=== PATIENT | female | born 1945 | race Asian ===

== ENCOUNTER 2017-05-24 13:05 | Emergency (ER) | payer MEDICARE, OTHER ==
[~2017-05-24] VITALS: Ht 157.5 cm; Wt 75.0 kg
[~2017-05-24 13:05] MED LIST: ACLI400A2 IH; AMIT50TA3 PO; AMLO1TAB15 PO; ASPI325T PO; BUDE10.2 IH; CYAN1TAB44 PO; DICL2100G TP; ESCI10TA54 PO; GABA-529 PO; MECL-129 PO; METF10002 PO; METO50 PO; MIRA50TA PO; MONT10TA21 PO; NIAC-8 PO; OMEG-76 PO; OMEP20 PO; PERCT PO; SIMV40TA5 PO; VITA400T9 PO; VITAD1000 PO
[2017-05-24 13:27] LABS: GLUCOSE,POINT OF CARE 202 MG/DL (70-110)
[2017-05-24 14:18] LABS: BASOPHILS % (AUTO) 0.7 % (0.0-2.0); EOSINOPHILS % (AUTO) 7.4 % (1.0-6.0); HEMATOCRIT 38.7 % (36-46); HEMOGLOBIN 12.9 g/dL (12.0-16.0); LYMPHOCYTES # (AUTO) 2.7 K/uL (1.0-4.8); LYMPHOCYTES % (AUTO) 39.8 % (22.0-44.0); MEAN CORPUSCULAR HEMOGLOBIN 28.7 pg (26.0-34.0); MEAN CORPUSCULAR HGB CONC 33.2 G/dL (31.0-37.0); MEAN CORPUSCULAR VOLUME 86 fL (80-100); MONOCYTES # (AUTO) 0.4 K/uL (0.1-1.0); MONOCYTES % (AUTO) 5.8 % (2.0-9.0); NEUTROPHILS # (AUTO) 3.1 K/uL (1.8-7.7); NEUTROPHILS % (AUTO) 46.3 % (40.0-70.0); PLATELET COUNT (AUTO) 208 K/uL (150-450); RED BLOOD CELL COUNT(AUTO) 4.48 MIL/uL (4.00-5.20); RED CELL DISTRIBUTION WIDTH 14.9 % (11.5-14.5); WHITE BLOOD COUNT (AUTO) 6.7 K/uL (4.5-11.0)
[2017-05-24 14:27] LABS: ANION GAP 12 mmol/L (8-16); CALCIUM, TOTAL 8.9 mg/dL (8.8-10.5); CARBON DIOXIDE 25 mmol/L (22-29); CHLORIDE 100 mmol/L (98-107); CREATININE 1.16 mg/dL (0.60-1.30); GLOMERULAR FILTR. RATE CALC 46 mL/min (>60); POTASSIUM 3.8 mmol/L (3.5-5.1); SODIUM SERUM 137 mmol/L (136-145); UREA NITROGEN, BLOOD 16 mg/dL (7-18)
[2017-05-24 14:29] LABS: PROTHROMBIN TIME 10.5 SEC (9.4-11.6)
[2017-05-24 14:33] LABS: B-TYPE NATRIURETIC PEPTIDE 50 pg/mL (0-100)
[2017-05-24 14:51] LABS: GLUCOSE, URINE (UA) NEGATIVE (NEGATIVE); KETONES,URINE NEGATIVE (NEGATIVE); LEUKOCYTE ESTERASE ,URINE MODERATE (NEGATIVE); OCCULT BLOOD,URINE NEGATIVE (NEGATIVE); PROTEIN,URINE NEGATIVE (NEGATIVE)
[2017-05-24 14:53] LABS: ALANINE AMINOTRANSFERASE 28 U/L (12-78); ASPARTATE AMINOTRANSFERASE 23 U/L (15-37); BILIRUBIN,TOTAL 0.5 mg/dL (0.1-1.0); CREATINE KINASE, TOTAL 84 U/L (26-192); TOTAL PROTEIN, SERUM 7.6 g/dL (6.4-8.2)
[2017-05-24 14:57] LABS: ADD UA MICROSCOPIC YES; APPEARANCE,URINE HAZY (CLEAR); RBC,URINE None Seen /HPF (0-2); SQUAMOUS EPITHELIAL CELL,UR Few /LPF (None Seen)
[2017-05-24 15:05] LABS: CREATINE KINASE MB < 0.5 ng/mL (0-5)
[2017-05-24 15:38] LABS: THYROID STIMULATING HORMONE 2.93 uIU/mL (0.36-3.74)
[2017-05-24 15:48] LABS: ERYTHROCYTE SEDIMENTATION RATE 32 MM/HR (0-20)
[2017-05-24 15:57] LABS: GLUCOSE,POINT OF CARE 102 MG/DL (70-110)
[2017-05-24] MEDS ORDERED: SODIUM CHLORIDE 0.9% 500 ML IV ONE (16:15)
[2017-05-24 16:36] VITALS: BP 167/85
== END 2017-05-24 17:18 | disposition home or self-care (01) ==
LOC: EMS 13:08
DX: J40 Bronchitis, not specified as acute or chronic (principal); R53.1 Weakness; R42 Dizziness and giddiness; I11.9 Hypertensive heart disease without heart failure; E11.9 Type 2 diabetes mellitus without complications; J44.9 Chronic obstructive pulmonary disease, unspecified; F17.210 Nicotine dependence, cigarettes, uncomplicated; Z88.0 Allergy status to penicillin; Z88.6 Allergy status to analgesic agent
CPT/HCPCS: 36415; 70450; 71010; 80053; 81001; 82550; 82553; 82962; 83880; 84443; 84484; 85025; 85610; 85651; 85730; 87086; 93005; 99285; J7040

== ENCOUNTER 2017-06-14 12:00 | Emergency (ER) | payer MEDICARE, OTHER ==
[~2017-06-14] VITALS: Ht 157.5 cm; Wt 77.0 kg
[~2017-06-14 12:00] MED LIST changes: +ASPI-1213 PO; -ASPI325T PO
[2017-06-14 13:32] LABS: BASOPHILS % (AUTO) 1.1 % (0.0-2.0); EOSINOPHILS % (AUTO) 6.1 % (1.0-6.0); HEMATOCRIT 39.3 % (36-46); HEMOGLOBIN 13.2 g/dL (12.0-16.0); LYMPHOCYTES # (AUTO) 2.1 K/uL (1.0-4.8); LYMPHOCYTES % (AUTO) 41.2 % (22.0-44.0); MEAN CORPUSCULAR HEMOGLOBIN 29.2 pg (26.0-34.0); MEAN CORPUSCULAR HGB CONC 33.6 G/dL (31.0-37.0); MEAN CORPUSCULAR VOLUME 87 fL (80-100); MONOCYTES # (AUTO) 0.4 K/uL (0.1-1.0); MONOCYTES % (AUTO) 7.9 % (2.0-9.0); NEUTROPHILS # (AUTO) 2.2 K/uL (1.8-7.7); NEUTROPHILS % (AUTO) 43.7 % (40.0-70.0); PLATELET COUNT (AUTO) 197 K/uL (150-450); RED BLOOD CELL COUNT(AUTO) 4.53 MIL/uL (4.00-5.20); RED CELL DISTRIBUTION WIDTH 14.9 % (11.5-14.5); WHITE BLOOD COUNT (AUTO) 5.1 K/uL (4.5-11.0)
[2017-06-14 13:43] LABS: ANION GAP 9 mmol/L (8-16); CALCIUM, TOTAL 9.5 mg/dL (8.8-10.5); CARBON DIOXIDE 29 mmol/L (22-29); CHLORIDE 101 mmol/L (98-107); CREATININE 1.08 mg/dL (0.60-1.30); GLOMERULAR FILTR. RATE CALC 50 mL/min (>60); POTASSIUM 4.3 mmol/L (3.5-5.1); SODIUM SERUM 139 mmol/L (136-145); UREA NITROGEN, BLOOD 14 mg/dL (7-18)
[2017-06-14 13:54] LABS: B-TYPE NATRIURETIC PEPTIDE 108 pg/mL (0-100)
[2017-06-14 14:08] LABS: ALANINE AMINOTRANSFERASE 26 U/L (12-78); ALBUMIN 4.3 g/dL (3.4-5.0); ASPARTATE AMINOTRANSFERASE 38 U/L (15-37); BILIRUBIN,TOTAL 0.6 mg/dL (0.1-1.0); CREATINE KINASE, TOTAL 113 U/L (26-192); TOTAL PROTEIN, SERUM 8.2 g/dL (6.4-8.2)
[2017-06-14 14:10] LABS: CREATINE KINASE MB < 0.5 ng/mL (0-5)
[2017-06-14 15:04] VITALS: BP 141/86
[2017-06-14 16:48] LABS: GLUCOSE,POINT OF CARE 173 MG/DL (70-110)
== END 2017-06-14 15:09 | disposition home or self-care (01) ==
LOC: EMS 12:01
DX: R51 Headache (principal); G89.29 Other chronic pain; J44.9 Chronic obstructive pulmonary disease, unspecified; E11.9 Type 2 diabetes mellitus without complications; I11.9 Hypertensive heart disease without heart failure; G43.909 Migraine, unspecified, not intractable, without status migrainosus; F17.210 Nicotine dependence, cigarettes, uncomplicated; Z86.73 Personal history of transient ischemic attack (TIA), and cerebral infarction without residual deficits; Z79.82 Long term (current) use of aspirin; Z88.0 Allergy status to penicillin; Z88.6 Allergy status to analgesic agent
CPT/HCPCS: 70450; 82962; 99285

== ENCOUNTER 2019-07-30 11:20 | Inpatient (IN) | payer MEDICARE, OTHER ==
[~2019-07-30] VITALS: Ht 157.5 cm; Wt 68.2 kg
[~2019-07-30 11:20] MED LIST changes: -ACLI400A2 IH; +ACLI400A3 IH; +ALLO100T PO; -ASPI-1213 PO; +ASPI-1484 PO; +CHOL100018 PO; +METF-446 PO; -METF10002 PO; -PERCT PO; +SIMV-46 PO; -SIMV40TA5 PO; -VITAD1000 PO
[2019-07-30] MEDS ORDERED: ALLO100T PO (11:48)
[2019-07-30] MEDS ORDERED: METO25 PO (11:48)
[2019-07-30] MEDS ORDERED: GEMF600T5 PO (11:48)
[2019-07-30] MEDS ORDERED: [UNRECOGNIZED DRUG - OTHER] PO (11:48)
[2019-07-30] MEDS ORDERED: HYDR10TA31 PO (11:48)
[2019-07-30] MEDS ORDERED: SODIUM CHLORIDE 0.9% 100 ML ONE (11:51)
[2019-07-30] MEDS ORDERED: IOVERSOL 350 MG/ML 100 ML VIAL ONE (11:51)
[2019-07-30 12:05] LABS: BASOPHILS % (AUTO) 1.4 % (0.0-2.0); EOSINOPHILS % (AUTO) 7.8 % (1.0-6.0); HEMATOCRIT 37.9 % (36-46); LYMPHOCYTES % (AUTO) 35.4 % (22.0-44.0); MEAN CORPUSCULAR HEMOGLOBIN 26.9 pg (26.0-34.0); MEAN CORPUSCULAR HGB CONC 31.7 G/dL (31.0-37.0); MEAN CORPUSCULAR VOLUME 85 fL (80-100); MONOCYTES # (AUTO) 0.4 K/uL (0.1-1.0); NEUTROPHILS # (AUTO) 2.7 K/uL (1.8-7.7); NEUTROPHILS % (AUTO) 48.4 % (40.0-70.0); PLATELET COUNT (AUTO) 227 K/uL (150-450); RED BLOOD CELL COUNT(AUTO) 4.47 MIL/uL (4.00-5.20); RED CELL DISTRIBUTION WIDTH 15.7 % (11.5-14.5)
[2019-07-30 12:14] LABS: CALCIUM, TOTAL 8.8 mg/dL (8.8-10.5); CREATININE 1.07 mg/dL (0.60-1.30); POTASSIUM 3.8 mmol/L (3.5-5.1)
[2019-07-30 12:19] LABS: INR 0.9 (0.9-1.1); PROTHROMBIN TIME 9.4 SEC (9.4-11.6)
[2019-07-30 12:20] LABS: ALBUMIN 3.5 g/dL (3.4-5.0); BILIRUBIN,TOTAL 0.4 mg/dL (0.1-1.0); TOTAL PROTEIN, SERUM 7.6 g/dL (6.4-8.2)
[2019-07-30] MEDS ORDERED: ASPIRIN 300 MG RECTAL SUPPOSITORY PR ONE (13:00)
[2019-07-30] MEDS ORDERED: ONDANSETRON HCL 4 MG/2 ML VIAL IVP PRN ×2 (13:15→23:15)
[2019-07-30 13:48] LABS: GLUCOSE,POINT OF CARE 179 MG/DL (70-110)
[2019-07-30 17:33] LABS: GLUCOSE,POINT OF CARE 109 MG/DL (70-110)
[2019-07-30 18:10] VITALS: BP 148/82
[2019-07-30] MEDS ORDERED: INSULIN LISPRO 100 UNITS/ML SQ PRN (19:15)
[2019-07-30] MEDS ORDERED: DEXTROSE 50%-WATER 25 GM/50 ML SYRINGE IVP PRN (19:15)
[2019-07-30 20:43] VITALS: BP 160/77
[2019-07-30] MEDS ORDERED: ACETAMINOPHEN 325 MG TABLET PO PRN (23:15)
[2019-07-30] MEDS ORDERED: 0.9% SODIUM CHLORIDE 10 ML SYRINGE IVP PRN (23:15)
[2019-07-30] MEDS ORDERED: ZOLPIDEM TARTRATE 5 MG TABLET PO PRN (23:15)
[2019-07-30] MEDS: METOPROLOL TARTRATE 25 MG TABLET PO SCH (23:38)
[2019-07-30] MEDS: SIMVASTATIN 40 MG TABLET PO SCH (23:38)
[2019-07-31 00:07] VITALS: BP 131/71
[2019-07-31 00:29] LABS: CHOL/HDL RATIO 6.9 (3.9-5.7); THYROID STIMULATING HORMONE 4.16 uIU/mL (0.36-3.74)
[2019-07-31 04:34] VITALS: BP 155/82
[2019-07-31] MEDS: GEMFIBROZIL 600 MG TABLET PO SCH ×2 (06:30→16:59)
[2019-07-31 06:43] LABS: BASOPHILS % (AUTO) 1.5 % (0.0-2.0); EOSINOPHILS % (AUTO) 8.4 % (1.0-6.0); HEMATOCRIT 34.8 % (36-46); HEMOGLOBIN 11.2 g/dL (12.0-16.0); LYMPHOCYTES # (AUTO) 2.6 K/uL (1.0-4.8); LYMPHOCYTES % (AUTO) 43.9 % (22.0-44.0); MEAN CORPUSCULAR HEMOGLOBIN 27.2 pg (26.0-34.0); MEAN CORPUSCULAR HGB CONC 32.1 G/dL (31.0-37.0); MEAN CORPUSCULAR VOLUME 85 fL (80-100); MONOCYTES # (AUTO) 0.5 K/uL (0.1-1.0); MONOCYTES % (AUTO) 7.6 % (2.0-9.0); NEUTROPHILS # (AUTO) 2.3 K/uL (1.8-7.7); NEUTROPHILS % (AUTO) 38.6 % (40.0-70.0); PLATELET COUNT (AUTO) 216 K/uL (150-450); RED BLOOD CELL COUNT(AUTO) 4.11 MIL/uL (4.00-5.20); RED CELL DISTRIBUTION WIDTH 15.6 % (11.5-14.5)
[2019-07-31 07:02] LABS: CALCIUM, TOTAL 8.5 mg/dL (8.8-10.5); CREATININE 1.08 mg/dL (0.60-1.30); MAGNESIUM 1.1 mg/dL (1.80-2.40); POTASSIUM 3.4 mmol/L (3.5-5.1)
[2019-07-31 08:19] VITALS: BP 158/95
[2019-07-31 08:20] LABS: GLUCOMETER DEV NAME(LOC) 5N.1; GLUCOSE,POINT OF CARE 106 MG/DL (70-110)
[2019-07-31] MEDS ORDERED: ESCITALOPRAM OXALATE 10 MG TABLET PO SCH (09:00)
[2019-07-31] MEDS ORDERED: GABAPENTIN 100 MG CAPSULE PO SCH (09:00)
[2019-07-31] MEDS ORDERED: ASPIRIN 325 MG TABLET PO SCH (09:00)
[2019-07-31] MEDS ORDERED: PANTOPRAZOLE SODIUM 40 MG DR TABLET PO SCH (09:00)
[2019-07-31] MEDS ORDERED: DOCUSATE SODIUM 100 MG CAPSULE PO SCH (09:00)
[2019-07-31] MEDS: BUDESONIDE/FORMOTEROL FUMARATE 160-4.5 MCG/PUFF 6.9 GM INHALER IH SCH ×2 (09:23→21:21)
[2019-07-31] MEDS: HydrALAZINE HCL 50 MG TABLET PO SCH (09:23)
[2019-07-31] MEDS: METOPROLOL TARTRATE 25 MG TABLET PO SCH ×2 (09:23→21:20)
[2019-07-31] MEDS: CHOLECALCIFEROL (VIT D3) 1,000 UNITS TABLET PO SCH (09:24)
[2019-07-31] MEDS: MONTELUKAST SODIUM 10 MG TABLET PO SCH (09:24)
[2019-07-31] MEDS: ALLOPURINOL 100 MG TABLET PO SCH ×2 (09:24→21:20)
[2019-07-31] MEDS ORDERED: MAGNESIUM SULFATE 4 GM/WATER 100 ML IV PRN (11:15)
[2019-07-31] MEDS ORDERED: MAGNESIUM SULFATE 2 GM/WATER 50 ML IV PRN (11:15)
[2019-07-31] MEDS ORDERED: POTASSIUM CHLORIDE 20 MEQ ER TABLET PO PRN (11:15)
[2019-07-31] MEDS ORDERED: POTASSIUM CHL 10 MEQ/WATER 50 ML IV PRN (11:15)
[2019-07-31 11:41] LABS: ALBUMIN 3.3 g/dL (3.4-5.0)
[2019-07-31 12:22] LABS: GLUCOMETER DEV NAME(LOC) 5S.2A; GLUCOSE,POINT OF CARE 118 MG/DL (70-110)
[2019-07-31] MEDS ORDERED: SODIUM CHLORIDE 0.9% 250 ML IV ONE (12:33)
[2019-07-31] MEDS: MetFORMIN HCL 500 MG TABLET PO SCH ×2 (12:46→18:18)
[2019-07-31] MEDS: OMEPRAZOLE 20 MG CAPSULE PO SCH ×2 (12:47→21:20)
[2019-07-31] MEDS: ASPIRIN 81 MG CHEWABLE TABLET PO SCH (12:48)
[2019-07-31 15:30] VITALS: BP 152/94
[2019-07-31] MEDS: HEPARIN SODIUM,PORCINE 5,000 UNITS/ML VIAL SQ SCH (17:02)
[2019-07-31 20:10] VITALS: BP 158/81
[2019-07-31] MEDS: SIMVASTATIN 40 MG TABLET PO SCH (21:20)
[2019-07-31 21:37] LABS: GLUCOMETER DEV NAME(LOC) 5N.2; GLUCOSE,POINT OF CARE 158 MG/DL (70-110)
[2019-07-31 21:37] LABS: GLUCOMETER DEV NAME(LOC) 5N.2; GLUCOSE,POINT OF CARE 148 MG/DL (70-110)
[2019-07-31 21:37] LABS: GLUCOMETER DEV NAME(LOC) 5N.2; GLUCOSE,POINT OF CARE 184 MG/DL (70-110)
[2019-07-31 23:56] VITALS: BP 153/86
[2019-08-01 04:43] VITALS: BP 159/73
[2019-08-01] MEDS: GEMFIBROZIL 600 MG TABLET PO SCH ×2 (06:30→17:12)
[2019-08-01 06:56] LABS: GLUCOMETER DEV NAME(LOC) 5N.1; GLUCOSE,POINT OF CARE 160 MG/DL (70-110)
[2019-08-01 08:19] VITALS: BP 151/88
[2019-08-01] MEDS: HEPARIN SODIUM,PORCINE 5,000 UNITS/ML VIAL SQ SCH ×4 (08:30→23:11)
[2019-08-01] MEDS: MetFORMIN HCL 500 MG TABLET PO SCH ×2 (08:30→17:12)
[2019-08-01] MEDS: MONTELUKAST SODIUM 10 MG TABLET PO SCH (08:31)
[2019-08-01] MEDS: ASPIRIN 81 MG CHEWABLE TABLET PO SCH (08:31)
[2019-08-01] MEDS: BUDESONIDE/FORMOTEROL FUMARATE 160-4.5 MCG/PUFF 6.9 GM INHALER IH SCH ×2 (08:31→21:38)
[2019-08-01] MEDS: HydrALAZINE HCL 50 MG TABLET PO SCH (08:31)
[2019-08-01] MEDS: METOPROLOL TARTRATE 25 MG TABLET PO SCH ×2 (08:31→21:37)
[2019-08-01] MEDS: CLOPIDOGREL BISULFATE 75 MG TABLET PO SCH (08:31)
[2019-08-01] MEDS: ALLOPURINOL 100 MG TABLET PO SCH ×2 (08:32→21:37)
[2019-08-01] MEDS: CHOLECALCIFEROL (VIT D3) 1,000 UNITS TABLET PO SCH (08:32)
[2019-08-01] MEDS: MAGNESIUM OXIDE 400 MG TABLET PO PRN ×2 (08:32→18:51)
[2019-08-01] MEDS ORDERED: OMEPRAZOLE 20 MG CAPSULE PO SCH (09:00)
[2019-08-01] MEDS ORDERED: MECL-111 PO (11:13)
[2019-08-01] MEDS ORDERED: AMLO1TAB15 PO (11:13)
[2019-08-01] MEDS ORDERED: HYDR-2924 PO (11:14)
[2019-08-01 11:52] VITALS: BP 148/74
[2019-08-01 12:17] LABS: GLUCOMETER DEV NAME(LOC) 5N.2; GLUCOSE,POINT OF CARE 145 MG/DL (70-110)
[2019-08-01] MEDS: PANTOPRAZOLE SODIUM 40 MG DR TABLET PO SCH (13:48)
[2019-08-01 15:50] VITALS: BP 141/75
[2019-08-01] MEDS ORDERED: ACETAMINOPHEN 325 MG TABLET PO PRN (17:00)
[2019-08-01 17:36] LABS: GLUCOMETER DEV NAME(LOC) 5N.1; GLUCOSE,POINT OF CARE 141 MG/DL (70-110)
[2019-08-01 20:22] VITALS: BP 160/79
[2019-08-01] MEDS ORDERED: SIMVASTATIN 40 MG TABLET PO SCH (21:00)
[2019-08-02 00:03] VITALS: BP 146/79
[2019-08-02] MEDS: MAGNESIUM OXIDE 400 MG TABLET PO PRN (02:08)
[2019-08-02 04:37] VITALS: BP 157/77
[2019-08-02] MEDS: GEMFIBROZIL 600 MG TABLET PO SCH ×2 (06:00→17:43)
[2019-08-02 08:00] VITALS: BP 173/86
[2019-08-02] MEDS: HEPARIN SODIUM,PORCINE 5,000 UNITS/ML VIAL SQ SCH ×2 (09:48→16:03)
[2019-08-02] MEDS: MetFORMIN HCL 500 MG TABLET PO SCH ×2 (09:48→17:43)
[2019-08-02] MEDS: BUDESONIDE/FORMOTEROL FUMARATE 160-4.5 MCG/PUFF 6.9 GM INHALER IH SCH (09:49)
[2019-08-02] MEDS: HydrALAZINE HCL 50 MG TABLET PO SCH (09:49)
[2019-08-02] MEDS: METOPROLOL TARTRATE 25 MG TABLET PO SCH (09:49)
[2019-08-02] MEDS: ASPIRIN 81 MG CHEWABLE TABLET PO SCH (09:49)
[2019-08-02] MEDS: CHOLECALCIFEROL (VIT D3) 1,000 UNITS TABLET PO SCH (09:50)
[2019-08-02] MEDS: PANTOPRAZOLE SODIUM 40 MG DR TABLET PO SCH (09:50)
[2019-08-02] MEDS: CLOPIDOGREL BISULFATE 75 MG TABLET PO SCH (09:50)
[2019-08-02] MEDS: MONTELUKAST SODIUM 10 MG TABLET PO SCH (09:50)
[2019-08-02] MEDS: ALLOPURINOL 100 MG TABLET PO SCH (09:51)
[2019-08-02 11:45] VITALS: BP 146/93
[2019-08-02 17:38] LABS: GLUCOMETER DEV NAME(LOC) 5N.2; GLUCOSE,POINT OF CARE 146 MG/DL (70-110)
[2019-08-03 02:49] LABS: GLUCOMETER DEV NAME(LOC) 5N.1; GLUCOSE,POINT OF CARE 159 MG/DL (70-110)
[2019-08-03 02:49] LABS: GLUCOMETER DEV NAME(LOC) 5N.1; GLUCOSE,POINT OF CARE 115 MG/DL (70-110)
[2019-08-03 06:49] LABS: GLUCOMETER DEV NAME(LOC) 5S.1; GLUCOSE,POINT OF CARE 123 MG/DL (70-110)
== END 2019-08-02 18:50 | DRG 66 ==
LOC: EMS 11:24 → AHU 14:13 → EMS 14:22 → 5S 17:25
PROVIDERS: ADMIT Internal Medicine; ATTEND Internal Medicine
DX: I63.9 Cerebral infarction, unspecified (principal); E11.9 Type 2 diabetes mellitus without complications; I10 Essential (primary) hypertension; G43.909 Migraine, unspecified, not intractable, without status migrainosus; E11.40 Type 2 diabetes mellitus with diabetic neuropathy, unspecified; E78.5 Hyperlipidemia, unspecified; E83.42 Hypomagnesemia; E87.6 Hypokalemia; F17.210 Nicotine dependence, cigarettes, uncomplicated; F32.9 Major depressive disorder, single episode, unspecified; I25.10 Atherosclerotic heart disease of native coronary artery without angina pectoris; I65.1 Occlusion and stenosis of basilar artery; J44.9 Chronic obstructive pulmonary disease, unspecified; Z90.710 Acquired absence of both cervix and uterus; Z88.8 Allergy status to other drugs, medicaments and biological substances
CPT/HCPCS: 70496; 70551; 82948; 83735; 84132; 84443; 86850; 86900; 86901; 92507; 92610; 93005; 93306; 97116; 97162; 97166; 97530; 97535; J1644; J3475; J7050

== ENCOUNTER 2019-08-02 18:55 | Inpatient (IN) | payer MEDICARE, OTHER ==
[~2019-08-02] VITALS: Ht 157.5 cm; Wt 67.6 kg
[~2019-08-02 18:55] MED LIST changes: -ACLI400A3 IH; -AMIT50TA3 PO; +GEMF600T5 PO; +HYDR-2924 PO; +MECL-111 PO; -MECL-129 PO; +METO25 PO; -METO50 PO; +[UNRECOGNIZED DRUG - OTHER] PO
[2019-08-02 20:30] VITALS: BP 162/87
[2019-08-02] MEDS ORDERED: DEXTROSE 50%-WATER 25 GM/50 ML SYRINGE IVP PRN (21:00)
[2019-08-02] MEDS: SENNA 187 MG TABLET PO SCH (21:00)
[2019-08-02] MEDS: DOCUSATE SODIUM 100 MG CAPSULE PO SCH (21:00)
[2019-08-02] MEDS ORDERED: OMEPRAZOLE 20 MG CAPSULE PO SCH (21:00)
[2019-08-02 21:51] VITALS: BP 187/86
[2019-08-02] MEDS: BUDESONIDE/FORMOTEROL FUMARATE 160-4.5 MCG/PUFF 6.9 GM INHALER IH SCH (21:53)
[2019-08-02] MEDS: SIMVASTATIN 40 MG TABLET PO SCH (21:54)
[2019-08-02] MEDS: METOPROLOL TARTRATE 25 MG TABLET PO SCH (21:55)
[2019-08-02] MEDS: ALLOPURINOL 100 MG TABLET PO SCH (21:55)
[2019-08-02 21:56] LABS: GLUCOMETER DEV NAME(LOC) 2WR.2; GLUCOSE,POINT OF CARE 119 MG/DL (70-110)
[2019-08-02] MEDS: ACETAMINOPHEN 325 MG TABLET PO PRN (21:58)
[2019-08-02 23:00] VITALS: BP 151/74
[2019-08-03] MEDS: OXYGEN THERAPY IH SCH ×3 (00:19→17:54)
[2019-08-03] MEDS: 0.9% SODIUM CHLORIDE 10 ML SYRINGE IVP SCH ×3 (00:19→17:55)
[2019-08-03 06:00] VITALS: BP 148/69
[2019-08-03 06:22] LABS: BASOPHILS % (AUTO) 1.7 % (0.0-2.0); EOSINOPHILS % (AUTO) 9.6 % (1.0-6.0); HEMATOCRIT 37.2 % (36-46); HEMOGLOBIN 11.7 g/dL (12.0-16.0); LYMPHOCYTES # (AUTO) 2.3 K/uL (1.0-4.8); MEAN CORPUSCULAR HEMOGLOBIN 26.9 pg (26.0-34.0); MEAN CORPUSCULAR HGB CONC 31.5 G/dL (31.0-37.0); MEAN CORPUSCULAR VOLUME 85 fL (80-100); MONOCYTES # (AUTO) 0.5 K/uL (0.1-1.0); MONOCYTES % (AUTO) 9.3 % (2.0-9.0); NEUTROPHILS # (AUTO) 2.1 K/uL (1.8-7.7); NEUTROPHILS % (AUTO) 38.4 % (40.0-70.0); PLATELET COUNT (AUTO) 235 K/uL (150-450); RED BLOOD CELL COUNT(AUTO) 4.36 MIL/uL (4.00-5.20); RED CELL DISTRIBUTION WIDTH 15.6 % (11.5-14.5)
[2019-08-03 06:27] LABS: GLUCOMETER DEV NAME(LOC) 2WR.2; GLUCOSE,POINT OF CARE 134 MG/DL (70-110)
[2019-08-03 06:37] LABS: ALBUMIN 3.5 g/dL (3.4-5.0); BILIRUBIN,TOTAL 0.4 mg/dL (0.1-1.0); CALCIUM, TOTAL 9.1 mg/dL (8.8-10.5); CREATININE 0.99 mg/dL (0.60-1.30); MAGNESIUM 1.6 mg/dL (1.80-2.40); POTASSIUM 4.3 mmol/L (3.5-5.1); TOTAL PROTEIN, SERUM 7.6 g/dL (6.4-8.2)
[2019-08-03] MEDS: GEMFIBROZIL 600 MG TABLET PO SCH ×2 (06:59→17:55)
[2019-08-03 07:33] VITALS: BP 173/94
[2019-08-03] MEDS: ACETAMINOPHEN 325 MG TABLET PO PRN (07:33)
[2019-08-03] MEDS: METOPROLOL TARTRATE 25 MG TABLET PO SCH ×2 (07:33→21:13)
[2019-08-03] MEDS: HydrALAZINE HCL 50 MG TABLET PO SCH (07:34)
[2019-08-03 08:33] VITALS: BP 150/98
[2019-08-03] MEDS ORDERED: ONDANSETRON HCL 4 MG TABLET PO PRN (09:00)
[2019-08-03] MEDS: CHOLECALCIFEROL (VIT D3) 1,000 UNITS TABLET PO SCH (09:37)
[2019-08-03] MEDS: MONTELUKAST SODIUM 10 MG TABLET PO SCH (09:38)
[2019-08-03] MEDS: DOCUSATE SODIUM 100 MG CAPSULE PO SCH ×2 (09:38→21:13)
[2019-08-03] MEDS: MetFORMIN HCL 500 MG TABLET PO SCH ×2 (09:38→17:55)
[2019-08-03] MEDS: CLOPIDOGREL BISULFATE 75 MG TABLET PO SCH (09:38)
[2019-08-03] MEDS: ASPIRIN 81 MG CHEWABLE TABLET PO SCH (09:38)
[2019-08-03] MEDS: BUDESONIDE/FORMOTEROL FUMARATE 160-4.5 MCG/PUFF 6.9 GM INHALER IH SCH ×2 (09:39→21:11)
[2019-08-03] MEDS: PANTOPRAZOLE SODIUM 40 MG DR TABLET PO SCH (09:39)
[2019-08-03] MEDS: ALLOPURINOL 100 MG TABLET PO SCH ×2 (09:40→21:13)
[2019-08-03 12:51] LABS: GLUCOMETER DEV NAME(LOC) 2WR.2; GLUCOSE,POINT OF CARE 143 MG/DL (70-110)
[2019-08-03] MEDS: INSULIN LISPRO 100 UNITS/ML SQ PRN ×2 (13:09→17:58)
[2019-08-03 15:30] VITALS: BP 141/77
[2019-08-03] MEDS: ESCITALOPRAM OXALATE 10 MG TABLET PO SCH (18:13)
[2019-08-03 18:46] LABS: GLUCOMETER DEV NAME(LOC) 2WR.2; GLUCOSE,POINT OF CARE 169 MG/DL (70-110)
[2019-08-03 20:36] VITALS: BP 151/83
[2019-08-03 21:12] LABS: GLUCOMETER DEV NAME(LOC) 2WR.2; GLUCOSE,POINT OF CARE 102 MG/DL (70-110)
[2019-08-03] MEDS: SIMVASTATIN 40 MG TABLET PO SCH (21:12)
[2019-08-03] MEDS: MAGNESIUM OXIDE 400 MG TABLET PO SCH (21:12)
[2019-08-03] MEDS: SENNA 187 MG TABLET PO SCH (21:13)
[2019-08-03] MEDS: MELATONIN 3 MG TABLET PO PRN (21:14)
[2019-08-04 02:25] VITALS: BP 153/90
[2019-08-04] MEDS: 0.9% SODIUM CHLORIDE 10 ML SYRINGE IVP SCH ×4 (02:28→23:26)
[2019-08-04] MEDS: GEMFIBROZIL 600 MG TABLET PO SCH ×2 (06:12→16:46)
[2019-08-04 06:31] LABS: HEMOGLOBIN A1C 7.4 % (4.5-6.2)
[2019-08-04 06:31] LABS: GLUCOMETER DEV NAME(LOC) 2WR.2; GLUCOSE,POINT OF CARE 141 MG/DL (70-110)
[2019-08-04 06:42] LABS: FREE T4 (FREE THYROXINE) 0.92 ng/dL (0.76-1.46)
[2019-08-04] MEDS: OXYGEN THERAPY IH SCH ×3 (08:00→16:00)
[2019-08-04 08:17] VITALS: BP 158/88
[2019-08-04] MEDS: MONTELUKAST SODIUM 10 MG TABLET PO SCH (08:32)
[2019-08-04] MEDS: ESCITALOPRAM OXALATE 10 MG TABLET PO SCH (08:33)
[2019-08-04] MEDS: ASPIRIN 81 MG CHEWABLE TABLET PO SCH (08:33)
[2019-08-04] MEDS: BUDESONIDE/FORMOTEROL FUMARATE 160-4.5 MCG/PUFF 6.9 GM INHALER IH SCH ×2 (08:33→20:52)
[2019-08-04] MEDS: CHOLECALCIFEROL (VIT D3) 1,000 UNITS TABLET PO SCH (08:33)
[2019-08-04] MEDS: CLOPIDOGREL BISULFATE 75 MG TABLET PO SCH (08:33)
[2019-08-04] MEDS: PANTOPRAZOLE SODIUM 40 MG DR TABLET PO SCH (08:33)
[2019-08-04] MEDS: MetFORMIN HCL 500 MG TABLET PO SCH ×2 (08:33→16:46)
[2019-08-04] MEDS: HydrALAZINE HCL 50 MG TABLET PO SCH (08:33)
[2019-08-04] MEDS: MAGNESIUM OXIDE 400 MG TABLET PO SCH ×2 (08:33→20:52)
[2019-08-04] MEDS: METOPROLOL TARTRATE 25 MG TABLET PO SCH ×2 (08:33→20:53)
[2019-08-04] MEDS: INSULIN LISPRO 100 UNITS/ML SQ PRN (08:44)
[2019-08-04] MEDS: ACETAMINOPHEN 325 MG TABLET PO PRN ×2 (08:53→18:54)
[2019-08-04] MEDS: DOCUSATE SODIUM 100 MG CAPSULE PO SCH ×2 (09:00→20:55)
[2019-08-04] MEDS: ALLOPURINOL 100 MG TABLET PO SCH ×2 (10:06→20:53)
[2019-08-04 10:10] VITALS: BP 152/87
[2019-08-04] MEDS ORDERED: OXYGEN THERAPY IH PRN (17:00)
[2019-08-04 17:11] VITALS: BP 144/70
[2019-08-04] MEDS: SIMVASTATIN 40 MG TABLET PO SCH (20:52)
[2019-08-04 20:55] VITALS: BP 157/92
[2019-08-04] MEDS: SENNA 187 MG TABLET PO SCH (20:55)
[2019-08-04 22:06] LABS: GLUCOMETER DEV NAME(LOC) 2WR.2; GLUCOSE,POINT OF CARE 125 MG/DL (70-110)
[2019-08-04 22:06] LABS: GLUCOMETER DEV NAME(LOC) 2WR.2; GLUCOSE,POINT OF CARE 127 MG/DL (70-110)
[2019-08-05 03:20] VITALS: BP 158/88
[2019-08-05] MEDS: GEMFIBROZIL 600 MG TABLET PO SCH ×2 (06:15→17:33)
[2019-08-05 06:29] LABS: GLUCOMETER DEV NAME(LOC) 2WR.1B; GLUCOSE,POINT OF CARE 134 MG/DL (70-110)
[2019-08-05] MEDS: BUDESONIDE/FORMOTEROL FUMARATE 160-4.5 MCG/PUFF 6.9 GM INHALER IH SCH ×2 (08:30→20:55)
[2019-08-05] MEDS: ACETAMINOPHEN 325 MG TABLET PO PRN (08:30)
[2019-08-05] MEDS: METOPROLOL TARTRATE 25 MG TABLET PO SCH ×2 (08:31→20:55)
[2019-08-05] MEDS: MONTELUKAST SODIUM 10 MG TABLET PO SCH (08:31)
[2019-08-05] MEDS: ALLOPURINOL 100 MG TABLET PO SCH ×2 (08:31→20:55)
[2019-08-05] MEDS: ESCITALOPRAM OXALATE 10 MG TABLET PO SCH (08:31)
[2019-08-05] MEDS: MetFORMIN HCL 500 MG TABLET PO SCH ×2 (08:31→17:33)
[2019-08-05] MEDS: HydrALAZINE HCL 50 MG TABLET PO SCH (08:31)
[2019-08-05] MEDS: CHOLECALCIFEROL (VIT D3) 1,000 UNITS TABLET PO SCH (08:31)
[2019-08-05] MEDS: PANTOPRAZOLE SODIUM 40 MG DR TABLET PO SCH (08:31)
[2019-08-05] MEDS: CLOPIDOGREL BISULFATE 75 MG TABLET PO SCH (08:31)
[2019-08-05] MEDS: DOCUSATE SODIUM 100 MG CAPSULE PO SCH ×2 (08:31→20:57)
[2019-08-05] MEDS: MAGNESIUM OXIDE 400 MG TABLET PO SCH ×2 (08:32→20:55)
[2019-08-05] MEDS: 0.9% SODIUM CHLORIDE 10 ML SYRINGE IVP SCH ×2 (08:32→16:00)
[2019-08-05] MEDS: ASPIRIN 81 MG CHEWABLE TABLET PO SCH (08:32)
[2019-08-05 09:08] VITALS: BP 154/81
[2019-08-05 11:52] LABS: GLUCOMETER DEV NAME(LOC) 2WR.2; GLUCOSE,POINT OF CARE 134 MG/DL (70-110)
[2019-08-05 13:00] VITALS: BP 147/83
[2019-08-05] MEDS: FLUTICASONE PROPIONATE 50 MCG/SPRAY 16 GM NASAL SPRAY NASAL SCH (13:12)
[2019-08-05] MEDS: AmLODIPine BESYLATE 5 MG TABLET PO SCH (13:12)
[2019-08-05] MEDS ORDERED: CARBIDOPA/LEVODOPA 25-100 MG TABLET PO SCH (16:00)
[2019-08-05 17:00] VITALS: BP 131/86
[2019-08-05] MEDS: INSULIN LISPRO 100 UNITS/ML SQ PRN (17:49)
[2019-08-05 19:22] LABS: GLUCOMETER DEV NAME(LOC) 2WR.1B; GLUCOSE,POINT OF CARE 149 MG/DL (70-110)
[2019-08-05] MEDS ORDERED: LOPERAMIDE HCL 2 MG CAPSULE PO PRN (20:45)
[2019-08-05] MEDS: SIMVASTATIN 40 MG TABLET PO SCH (20:55)
[2019-08-05] MEDS: SENNA 187 MG TABLET PO SCH (20:57)
[2019-08-06] VITALS: BP 140/79
[2019-08-06] MEDS: GEMFIBROZIL 600 MG TABLET PO SCH ×2 (05:36→16:55)
[2019-08-06 05:45] LABS: GLUCOMETER DEV NAME(LOC) 2WR.2; GLUCOSE,POINT OF CARE 122 MG/DL (70-110)
[2019-08-06 06:03] LABS: GLUCOMETER DEV NAME(LOC) 2WR.1B; GLUCOSE,POINT OF CARE 132 MG/DL (70-110)
[2019-08-06] MEDS: FLUTICASONE PROPIONATE 50 MCG/SPRAY 16 GM NASAL SPRAY NASAL SCH (08:14)
[2019-08-06] MEDS: CHOLECALCIFEROL (VIT D3) 1,000 UNITS TABLET PO SCH (08:14)
[2019-08-06] MEDS: MONTELUKAST SODIUM 10 MG TABLET PO SCH (08:14)
[2019-08-06] MEDS: HYDROCHLOROTHIAZIDE 25 MG TABLET PO SCH (08:14)
[2019-08-06] MEDS: ESCITALOPRAM OXALATE 10 MG TABLET PO SCH (08:14)
[2019-08-06] MEDS: BUDESONIDE/FORMOTEROL FUMARATE 160-4.5 MCG/PUFF 6.9 GM INHALER IH SCH ×2 (08:14→21:04)
[2019-08-06] MEDS: AmLODIPine BESYLATE 5 MG TABLET PO SCH (08:15)
[2019-08-06] MEDS: METOPROLOL TARTRATE 25 MG TABLET PO SCH ×2 (08:15→21:04)
[2019-08-06] MEDS: ASPIRIN 81 MG CHEWABLE TABLET PO SCH (08:15)
[2019-08-06] MEDS: PANTOPRAZOLE SODIUM 40 MG DR TABLET PO SCH (08:15)
[2019-08-06] MEDS: MAGNESIUM OXIDE 400 MG TABLET PO SCH ×2 (08:15→21:03)
[2019-08-06] MEDS: CLOPIDOGREL BISULFATE 75 MG TABLET PO SCH (08:15)
[2019-08-06] MEDS: MetFORMIN HCL 500 MG TABLET PO SCH ×2 (08:15→17:48)
[2019-08-06] MEDS: ALLOPURINOL 100 MG TABLET PO SCH ×2 (08:15→21:04)
[2019-08-06] MEDS: DOCUSATE SODIUM 100 MG CAPSULE PO SCH (08:16)
[2019-08-06 09:00] VITALS: BP 155/88
[2019-08-06] MEDS ORDERED: LOPERAMIDE HCL 2 MG CAPSULE PO PRN (13:15)
[2019-08-06 15:00] VITALS: BP_SYST 119; BP_SYST 142; BP_DIAS 63; BP_DIAS 87
[2019-08-06] MEDS ORDERED: SENNA 187 MG TABLET PO PRN (15:30)
[2019-08-06] MEDS ORDERED: DOCUSATE SODIUM 100 MG CAPSULE PO PRN (15:30)
[2019-08-06] MEDS: INSULIN LISPRO 100 UNITS/ML SQ PRN (17:50)
[2019-08-06 18:42] LABS: GLUCOMETER DEV NAME(LOC) 2WR.1B; GLUCOSE,POINT OF CARE 130 MG/DL (70-110)
[2019-08-06 19:15] LABS: GLUCOMETER DEV NAME(LOC) 2WR.2; GLUCOSE,POINT OF CARE 177 MG/DL (70-110)
[2019-08-06] MEDS: SIMVASTATIN 40 MG TABLET PO SCH (21:03)
[2019-08-06 21:39] LABS: GLUCOMETER DEV NAME(LOC) 2WR.2; GLUCOSE,POINT OF CARE 116 MG/DL (70-110)
[2019-08-07 01:00] VITALS: BP 148/86
[2019-08-07] MEDS: GEMFIBROZIL 600 MG TABLET PO SCH ×2 (06:10→17:09)
[2019-08-07 06:21] LABS: GLUCOMETER DEV NAME(LOC) 2WR.2; GLUCOSE,POINT OF CARE 138 MG/DL (70-110)
[2019-08-07 06:49] LABS: CREATININE 1.46 mg/dL (0.60-1.30); MAGNESIUM 1.4 mg/dL (1.80-2.40); POTASSIUM 4.4 mmol/L (3.5-5.1)
[2019-08-07 07:40] VITALS: BP 154/88
[2019-08-07] MEDS: ACETAMINOPHEN 325 MG TABLET PO PRN (07:48)
[2019-08-07] MEDS: MetFORMIN HCL 500 MG TABLET PO SCH ×2 (07:49→17:10)
[2019-08-07] MEDS: ASPIRIN 81 MG CHEWABLE TABLET PO SCH (08:04)
[2019-08-07] MEDS: CHOLECALCIFEROL (VIT D3) 1,000 UNITS TABLET PO SCH (08:04)
[2019-08-07] MEDS: CLOPIDOGREL BISULFATE 75 MG TABLET PO SCH (08:04)
[2019-08-07] MEDS: ESCITALOPRAM OXALATE 10 MG TABLET PO SCH (08:04)
[2019-08-07] MEDS: AmLODIPine BESYLATE 5 MG TABLET PO SCH (08:04)
[2019-08-07] MEDS: MAGNESIUM OXIDE 400 MG TABLET PO SCH ×3 (08:04→20:47)
[2019-08-07] MEDS: PANTOPRAZOLE SODIUM 40 MG DR TABLET PO SCH (08:04)
[2019-08-07] MEDS: HYDROCHLOROTHIAZIDE 25 MG TABLET PO SCH (08:04)
[2019-08-07] MEDS: ALLOPURINOL 100 MG TABLET PO SCH ×2 (08:04→20:47)
[2019-08-07] MEDS: METOPROLOL TARTRATE 25 MG TABLET PO SCH ×2 (08:04→20:47)
[2019-08-07] MEDS: FLUTICASONE PROPIONATE 50 MCG/SPRAY 16 GM NASAL SPRAY NASAL SCH (08:05)
[2019-08-07] MEDS: BUDESONIDE/FORMOTEROL FUMARATE 160-4.5 MCG/PUFF 6.9 GM INHALER IH SCH ×2 (08:05→20:47)
[2019-08-07] MEDS: MONTELUKAST SODIUM 10 MG TABLET PO SCH (08:53)
[2019-08-07] MEDS: MECLIZINE HCL 25 MG TABLET PO PRN (11:06)
[2019-08-07 13:03] LABS: GLUCOMETER DEV NAME(LOC) 2WR.2; GLUCOSE,POINT OF CARE 138 MG/DL (70-110)
[2019-08-07] MEDS ORDERED: *PATIENT'S OWN MED [ENTER DRUG, DOSE, FREQUENCY IN COMMENTS] CLINICAL ONE (15:45)
[2019-08-07 19:38] LABS: GLUCOMETER DEV NAME(LOC) 2WR.2; GLUCOSE,POINT OF CARE 154 MG/DL (70-110)
[2019-08-07 20:38] VITALS: BP 154/75
[2019-08-07] MEDS: SIMVASTATIN 40 MG TABLET PO SCH (20:47)
[2019-08-07 20:49] VITALS: BP 138/106
[2019-08-07] MEDS ORDERED: TRULICITY 0.75 MG/0.5 ML SQ SCH (21:00)
[2019-08-07 21:48] LABS: GLUCOMETER DEV NAME(LOC) 2WR.1B; GLUCOSE,POINT OF CARE 128 MG/DL (70-110)
[2019-08-08] VITALS: BP 140/85
[2019-08-08] MEDS: GEMFIBROZIL 600 MG TABLET PO SCH ×2 (06:26→16:08)
[2019-08-08 06:32] LABS: GLUCOMETER DEV NAME(LOC) 2WR.2; GLUCOSE,POINT OF CARE 133 MG/DL (70-110)
[2019-08-08] MEDS: BUDESONIDE/FORMOTEROL FUMARATE 160-4.5 MCG/PUFF 6.9 GM INHALER IH SCH ×2 (07:49→20:52)
[2019-08-08] MEDS: FLUTICASONE PROPIONATE 50 MCG/SPRAY 16 GM NASAL SPRAY NASAL SCH (07:49)
[2019-08-08] MEDS: PANTOPRAZOLE SODIUM 40 MG DR TABLET PO SCH (07:52)
[2019-08-08] MEDS: ESCITALOPRAM OXALATE 10 MG TABLET PO SCH (07:52)
[2019-08-08] MEDS: ALLOPURINOL 100 MG TABLET PO SCH ×2 (07:52→20:53)
[2019-08-08] MEDS: CLOPIDOGREL BISULFATE 75 MG TABLET PO SCH (07:52)
[2019-08-08] MEDS: CHOLECALCIFEROL (VIT D3) 1,000 UNITS TABLET PO SCH (07:52)
[2019-08-08] MEDS: POTASSIUM CHLORIDE 20 MEQ ER TABLET PO SCH (07:52)
[2019-08-08] MEDS: ASPIRIN 81 MG CHEWABLE TABLET PO SCH (07:52)
[2019-08-08] MEDS: MONTELUKAST SODIUM 10 MG TABLET PO SCH (07:52)
[2019-08-08] MEDS: METOPROLOL TARTRATE 25 MG TABLET PO SCH ×2 (07:52→20:53)
[2019-08-08] MEDS: HYDROCHLOROTHIAZIDE 25 MG TABLET PO SCH (07:53)
[2019-08-08] MEDS: AmLODIPine BESYLATE 5 MG TABLET PO SCH (07:53)
[2019-08-08] MEDS: MAGNESIUM OXIDE 400 MG TABLET PO SCH ×3 (07:54→20:52)
[2019-08-08] MEDS: MetFORMIN HCL 500 MG TABLET PO SCH ×2 (07:54→17:19)
[2019-08-08] MEDS: MECLIZINE HCL 25 MG TABLET PO PRN (09:03)
[2019-08-08 09:37] VITALS: BP 149/76
[2019-08-08] MEDS: INSULIN LISPRO 100 UNITS/ML SQ PRN ×2 (10:39→17:30)
[2019-08-08 12:24] LABS: GLUCOMETER DEV NAME(LOC) 2WR.1B; GLUCOSE,POINT OF CARE 160 MG/DL (70-110)
[2019-08-08 16:30] VITALS: BP 122/56
[2019-08-08 17:39] LABS: GLUCOMETER DEV NAME(LOC) 2WR.1B; GLUCOSE,POINT OF CARE 154 MG/DL (70-110)
[2019-08-08 20:45] VITALS: BP 144/78
[2019-08-08] MEDS: SIMVASTATIN 40 MG TABLET PO SCH (20:52)
[2019-08-08 21:37] LABS: GLUCOMETER DEV NAME(LOC) 2WR.2; GLUCOSE,POINT OF CARE 136 MG/DL (70-110)
[2019-08-08] MEDS: MELATONIN 3 MG TABLET PO PRN (22:40)
[2019-08-09] VITALS: BP 139/79
[2019-08-09] MEDS: GEMFIBROZIL 600 MG TABLET PO SCH ×2 (05:55→16:16)
[2019-08-09 06:38] LABS: GLUCOMETER DEV NAME(LOC) 2WR.1B; GLUCOSE,POINT OF CARE 129 MG/DL (70-110)
[2019-08-09] MEDS: PANTOPRAZOLE SODIUM 40 MG DR TABLET PO SCH (08:54)
[2019-08-09] MEDS: CHOLECALCIFEROL (VIT D3) 1,000 UNITS TABLET PO SCH (08:54)
[2019-08-09] MEDS: ESCITALOPRAM OXALATE 10 MG TABLET PO SCH (08:54)
[2019-08-09] MEDS: MetFORMIN HCL 500 MG TABLET PO SCH ×2 (08:54→16:16)
[2019-08-09] MEDS: ASPIRIN 81 MG CHEWABLE TABLET PO SCH (08:55)
[2019-08-09] MEDS: CLOPIDOGREL BISULFATE 75 MG TABLET PO SCH (08:55)
[2019-08-09] MEDS: MONTELUKAST SODIUM 10 MG TABLET PO SCH (08:55)
[2019-08-09] MEDS: METOPROLOL TARTRATE 25 MG TABLET PO SCH ×2 (08:55→20:33)
[2019-08-09] MEDS: ALLOPURINOL 100 MG TABLET PO SCH ×2 (08:55→20:33)
[2019-08-09] MEDS: AmLODIPine BESYLATE 5 MG TABLET PO SCH (08:55)
[2019-08-09] MEDS: POTASSIUM CHLORIDE 20 MEQ ER TABLET PO SCH (08:55)
[2019-08-09] MEDS: MAGNESIUM OXIDE 400 MG TABLET PO SCH ×3 (08:55→20:33)
[2019-08-09] MEDS: HYDROCHLOROTHIAZIDE 25 MG TABLET PO SCH (08:55)
[2019-08-09] MEDS: FLUTICASONE PROPIONATE 50 MCG/SPRAY 16 GM NASAL SPRAY NASAL SCH (08:56)
[2019-08-09] MEDS: BUDESONIDE/FORMOTEROL FUMARATE 160-4.5 MCG/PUFF 6.9 GM INHALER IH SCH ×2 (08:56→20:33)
[2019-08-09 09:00] VITALS: BP 135/57
[2019-08-09 12:09] LABS: GLUCOMETER DEV NAME(LOC) 2WR.2; GLUCOSE,POINT OF CARE 130 MG/DL (70-110)
[2019-08-09 15:50] VITALS: BP 128/74
[2019-08-09 16:34] LABS: GLUCOMETER DEV NAME(LOC) 2WR.2; GLUCOSE,POINT OF CARE 145 MG/DL (70-110)
[2019-08-09] MEDS: SIMVASTATIN 40 MG TABLET PO SCH (20:33)
[2019-08-09 20:38] LABS: GLUCOMETER DEV NAME(LOC) 2WR.2; GLUCOSE,POINT OF CARE 127 MG/DL (70-110)
[2019-08-10 00:15] VITALS: BP 147/87
[2019-08-10] MEDS: ACETAMINOPHEN 325 MG TABLET PO PRN ×2 (00:15→22:16)
[2019-08-10] MEDS: GEMFIBROZIL 600 MG TABLET PO SCH ×2 (06:20→15:55)
[2019-08-10 07:55] VITALS: BP 155/79
[2019-08-10] MEDS: CLOPIDOGREL BISULFATE 75 MG TABLET PO SCH (08:48)
[2019-08-10] MEDS: POTASSIUM CHLORIDE 20 MEQ ER TABLET PO SCH (08:48)
[2019-08-10] MEDS: MONTELUKAST SODIUM 10 MG TABLET PO SCH (08:48)
[2019-08-10] MEDS: HYDROCHLOROTHIAZIDE 25 MG TABLET PO SCH (08:48)
[2019-08-10] MEDS: MAGNESIUM OXIDE 400 MG TABLET PO SCH ×3 (08:48→22:15)
[2019-08-10] MEDS: BUDESONIDE/FORMOTEROL FUMARATE 160-4.5 MCG/PUFF 6.9 GM INHALER IH SCH ×2 (08:48→22:14)
[2019-08-10] MEDS: METOPROLOL TARTRATE 25 MG TABLET PO SCH ×2 (08:48→22:15)
[2019-08-10] MEDS: FLUTICASONE PROPIONATE 50 MCG/SPRAY 16 GM NASAL SPRAY NASAL SCH (08:48)
[2019-08-10] MEDS: PANTOPRAZOLE SODIUM 40 MG DR TABLET PO SCH (08:48)
[2019-08-10] MEDS: ESCITALOPRAM OXALATE 10 MG TABLET PO SCH (08:48)
[2019-08-10] MEDS: CHOLECALCIFEROL (VIT D3) 1,000 UNITS TABLET PO SCH (08:48)
[2019-08-10] MEDS: ALLOPURINOL 100 MG TABLET PO SCH ×2 (08:48→22:16)
[2019-08-10] MEDS: AmLODIPine BESYLATE 5 MG TABLET PO SCH (08:48)
[2019-08-10] MEDS: MetFORMIN HCL 500 MG TABLET PO SCH ×2 (08:49→17:34)
[2019-08-10] MEDS: ASPIRIN 81 MG CHEWABLE TABLET PO SCH (08:49)
[2019-08-10 11:13] LABS: GLUCOMETER DEV NAME(LOC) 2WR.1B; GLUCOSE,POINT OF CARE 124 MG/DL (70-110)
[2019-08-10 12:32] LABS: GLUCOMETER DEV NAME(LOC) 2WR.2; GLUCOSE,POINT OF CARE 152 MG/DL (70-110)
[2019-08-10] MEDS: INSULIN LISPRO 100 UNITS/ML SQ PRN ×2 (12:58→22:25)
[2019-08-10 15:48] LABS: APPEARANCE,URINE CLOUDY (CLEAR); BILIRUBIN,URINE NEGATIVE (NEGATIVE); GLUCOSE, URINE (UA) NEGATIVE (NEGATIVE); KETONES,URINE NEGATIVE (NEGATIVE); LEUKOCYTE ESTERASE ,URINE LARGE (NEGATIVE); NITRATE,URINE NEGATIVE (NEGATIVE); OCCULT BLOOD,URINE NEGATIVE (NEGATIVE); PROTEIN,URINE NEGATIVE (NEGATIVE); UROBILINOGEN,URINE 0.2 mg/dL (<=1.0)
[2019-08-10 16:05] LABS: BACTERIA,URINE Moderate /HPF (None Seen)
[2019-08-10 16:06] LABS: RBC,URINE None Seen /HPF (0-2); SQUAMOUS EPITHELIAL CELL,UR Moderate /LPF (None Seen)
[2019-08-10 17:21] VITALS: BP 145/85
[2019-08-10 17:32] LABS: GLUCOMETER DEV NAME(LOC) 2WR.2; GLUCOSE,POINT OF CARE 136 MG/DL (70-110)
[2019-08-10] MEDS: SIMVASTATIN 40 MG TABLET PO SCH (22:15)
[2019-08-11 01:16] VITALS: BP 142/74
[2019-08-11] MEDS: GEMFIBROZIL 600 MG TABLET PO SCH ×2 (06:19→16:48)
[2019-08-11 06:21] LABS: GLUCOMETER DEV NAME(LOC) 2WR.2; GLUCOSE,POINT OF CARE 144 MG/DL (70-110)
[2019-08-11 06:30] LABS: GLUCOMETER DEV NAME(LOC) 2WR.1B; GLUCOSE,POINT OF CARE 141 MG/DL (70-110)
[2019-08-11] MEDS: CLOPIDOGREL BISULFATE 75 MG TABLET PO SCH (08:20)
[2019-08-11] MEDS: METOPROLOL TARTRATE 25 MG TABLET PO SCH ×2 (08:20→21:10)
[2019-08-11] MEDS: PANTOPRAZOLE SODIUM 40 MG DR TABLET PO SCH (08:20)
[2019-08-11] MEDS: CHOLECALCIFEROL (VIT D3) 1,000 UNITS TABLET PO SCH (08:20)
[2019-08-11] MEDS: MetFORMIN HCL 500 MG TABLET PO SCH ×2 (08:20→16:48)
[2019-08-11] MEDS: AmLODIPine BESYLATE 10 MG TABLET PO SCH (08:20)
[2019-08-11] MEDS: ALLOPURINOL 100 MG TABLET PO SCH ×2 (08:20→21:10)
[2019-08-11] MEDS: ASPIRIN 81 MG CHEWABLE TABLET PO SCH (08:21)
[2019-08-11] MEDS: HYDROCHLOROTHIAZIDE 25 MG TABLET PO SCH (08:21)
[2019-08-11] MEDS: MONTELUKAST SODIUM 10 MG TABLET PO SCH (08:21)
[2019-08-11] MEDS: ESCITALOPRAM OXALATE 10 MG TABLET PO SCH (08:22)
[2019-08-11] MEDS: FLUTICASONE PROPIONATE 50 MCG/SPRAY 16 GM NASAL SPRAY NASAL SCH (08:22)
[2019-08-11] MEDS: POTASSIUM CHLORIDE 20 MEQ ER TABLET PO SCH (08:22)
[2019-08-11] MEDS: BUDESONIDE/FORMOTEROL FUMARATE 160-4.5 MCG/PUFF 6.9 GM INHALER IH SCH ×2 (08:22→21:10)
[2019-08-11] MEDS: MAGNESIUM OXIDE 400 MG TABLET PO SCH ×3 (08:22→21:10)
[2019-08-11] MEDS: INSULIN LISPRO 100 UNITS/ML SQ PRN (08:37)
[2019-08-11 08:45] VITALS: BP 154/98
[2019-08-11] MEDS: ACETAMINOPHEN 325 MG TABLET PO PRN (08:45)
[2019-08-11] MEDS: MECLIZINE HCL 25 MG TABLET PO PRN ×2 (10:19→15:13)
[2019-08-11 15:53] VITALS: BP 132/98
[2019-08-11 17:47] LABS: GLUCOMETER DEV NAME(LOC) 2WR.2; GLUCOSE,POINT OF CARE 131 MG/DL (70-110)
[2019-08-11 21:03] VITALS: BP 147/80
[2019-08-11] MEDS: SIMVASTATIN 40 MG TABLET PO SCH (21:10)
[2019-08-11] MEDS: MELATONIN 3 MG TABLET PO PRN (21:16)
[2019-08-11 21:51] LABS: GLUCOMETER DEV NAME(LOC) 2WR.2; GLUCOSE,POINT OF CARE 123 MG/DL (70-110)
[2019-08-12 00:47] LABS: GLUCOMETER DEV NAME(LOC) 2WR.1B; GLUCOSE,POINT OF CARE 121 MG/DL (70-110)
[2019-08-12 01:00] VITALS: BP 146/81
[2019-08-12] MEDS: GEMFIBROZIL 600 MG TABLET PO SCH ×2 (05:27→16:33)
[2019-08-12 05:45] LABS: GLUCOMETER DEV NAME(LOC) 2WR.2; GLUCOSE,POINT OF CARE 143 MG/DL (70-110)
[2019-08-12] MEDS: CHOLECALCIFEROL (VIT D3) 1,000 UNITS TABLET PO SCH (08:25)
[2019-08-12] MEDS: PANTOPRAZOLE SODIUM 40 MG DR TABLET PO SCH (08:25)
[2019-08-12] MEDS: MONTELUKAST SODIUM 10 MG TABLET PO SCH (08:25)
[2019-08-12] MEDS: POTASSIUM CHLORIDE 20 MEQ ER TABLET PO SCH (08:25)
[2019-08-12] MEDS: BUDESONIDE/FORMOTEROL FUMARATE 160-4.5 MCG/PUFF 6.9 GM INHALER IH SCH ×2 (08:25→21:01)
[2019-08-12] MEDS: FLUTICASONE PROPIONATE 50 MCG/SPRAY 16 GM NASAL SPRAY NASAL SCH (08:25)
[2019-08-12] MEDS: ALLOPURINOL 100 MG TABLET PO SCH ×2 (08:25→20:59)
[2019-08-12] MEDS: ASPIRIN 81 MG CHEWABLE TABLET PO SCH (08:26)
[2019-08-12] MEDS: HYDROCHLOROTHIAZIDE 25 MG TABLET PO SCH (08:26)
[2019-08-12] MEDS: METOPROLOL TARTRATE 25 MG TABLET PO SCH ×2 (08:26→21:00)
[2019-08-12] MEDS: AmLODIPine BESYLATE 10 MG TABLET PO SCH (08:26)
[2019-08-12] MEDS: MetFORMIN HCL 500 MG TABLET PO SCH ×2 (08:27→16:32)
[2019-08-12] MEDS: CLOPIDOGREL BISULFATE 75 MG TABLET PO SCH (08:27)
[2019-08-12] MEDS: MAGNESIUM OXIDE 400 MG TABLET PO SCH ×3 (08:27→20:59)
[2019-08-12] MEDS: ESCITALOPRAM OXALATE 10 MG TABLET PO SCH (08:27)
[2019-08-12] MEDS: INSULIN LISPRO 100 UNITS/ML SQ PRN (08:36)
[2019-08-12 08:58] VITALS: BP 127/62
[2019-08-12] MEDS: MECLIZINE HCL 25 MG TABLET PO PRN (09:10)
[2019-08-12 16:47] LABS: GLUCOMETER DEV NAME(LOC) 2WR.1B; GLUCOSE,POINT OF CARE 110 MG/DL (70-110)
[2019-08-12 17:00] VITALS: BP 136/82
[2019-08-12 17:30] LABS: GLUCOMETER DEV NAME(LOC) 2WR.2; GLUCOSE,POINT OF CARE 134 MG/DL (70-110)
[2019-08-12] MEDS: SIMVASTATIN 40 MG TABLET PO SCH (21:00)
[2019-08-12 21:07] VITALS: BP 142/72
[2019-08-12 21:59] LABS: GLUCOMETER DEV NAME(LOC) 2WR.2; GLUCOSE,POINT OF CARE 138 MG/DL (70-110)
[2019-08-13] VITALS: BP 108/64
[2019-08-13] MEDS: GEMFIBROZIL 600 MG TABLET PO SCH ×2 (06:15→17:06)
[2019-08-13 06:42] LABS: GLUCOMETER DEV NAME(LOC) 2WR.1B; GLUCOSE,POINT OF CARE 141 MG/DL (70-110)
[2019-08-13 08:01] VITALS: BP 131/79
[2019-08-13] MEDS: MetFORMIN HCL 500 MG TABLET PO SCH ×2 (08:02→17:06)
[2019-08-13] MEDS: PANTOPRAZOLE SODIUM 40 MG DR TABLET PO SCH (08:07)
[2019-08-13] MEDS: MONTELUKAST SODIUM 10 MG TABLET PO SCH (08:07)
[2019-08-13] MEDS: CLOPIDOGREL BISULFATE 75 MG TABLET PO SCH (08:07)
[2019-08-13] MEDS: CHOLECALCIFEROL (VIT D3) 1,000 UNITS TABLET PO SCH (08:07)
[2019-08-13] MEDS: POTASSIUM CHLORIDE 20 MEQ ER TABLET PO SCH (08:07)
[2019-08-13] MEDS: ESCITALOPRAM OXALATE 10 MG TABLET PO SCH (08:07)
[2019-08-13] MEDS: BUDESONIDE/FORMOTEROL FUMARATE 160-4.5 MCG/PUFF 6.9 GM INHALER IH SCH (08:07)
[2019-08-13] MEDS: FLUTICASONE PROPIONATE 50 MCG/SPRAY 16 GM NASAL SPRAY NASAL SCH (08:07)
[2019-08-13] MEDS: ASPIRIN 81 MG CHEWABLE TABLET PO SCH (08:07)
[2019-08-13] MEDS: ALLOPURINOL 100 MG TABLET PO SCH (08:09)
[2019-08-13] MEDS: MAGNESIUM OXIDE 400 MG TABLET PO SCH ×2 (08:09→17:06)
[2019-08-13] MEDS: HYDROCHLOROTHIAZIDE 25 MG TABLET PO SCH (08:09)
[2019-08-13] MEDS: METOPROLOL TARTRATE 25 MG TABLET PO SCH (08:09)
[2019-08-13] MEDS: AmLODIPine BESYLATE 10 MG TABLET PO SCH (08:09)
[2019-08-13] MEDS: INSULIN LISPRO 100 UNITS/ML SQ PRN ×2 (08:31→12:21)
[2019-08-13 12:14] LABS: GLUCOMETER DEV NAME(LOC) 2WR.2; GLUCOSE,POINT OF CARE 153 MG/DL (70-110)
[2019-08-13 17:21] VITALS: BP 118/72
[2019-08-13 23:31] LABS: GLUCOMETER DEV NAME(LOC) 2WR.1B; GLUCOSE,POINT OF CARE 169 MG/DL (70-110)
[2019-08-14] VITALS: BP 116/69
[2019-08-14] MEDS: SIMVASTATIN 40 MG TABLET PO SCH
[2019-08-14 06:17] LABS: GLUCOMETER DEV NAME(LOC) 2WR.2; GLUCOSE,POINT OF CARE 128 MG/DL (70-110)
[2019-08-14 06:17] LABS: GLUCOMETER DEV NAME(LOC) 2WR.2; GLUCOSE,POINT OF CARE 128 MG/DL (70-110)
[2019-08-14] MEDS: GEMFIBROZIL 600 MG TABLET PO SCH ×2 (06:29→17:05)
[2019-08-14 09:00] VITALS: BP 147/87
[2019-08-14] MEDS: CHOLECALCIFEROL (VIT D3) 1,000 UNITS TABLET PO SCH (09:12)
[2019-08-14] MEDS: CLOPIDOGREL BISULFATE 75 MG TABLET PO SCH (09:12)
[2019-08-14] MEDS: MONTELUKAST SODIUM 10 MG TABLET PO SCH (09:12)
[2019-08-14] MEDS: HYDROCHLOROTHIAZIDE 25 MG TABLET PO SCH (09:12)
[2019-08-14] MEDS: POTASSIUM CHLORIDE 20 MEQ ER TABLET PO SCH (09:12)
[2019-08-14] MEDS: MetFORMIN HCL 500 MG TABLET PO SCH ×2 (09:12→17:05)
[2019-08-14] MEDS: METOPROLOL TARTRATE 25 MG TABLET PO SCH ×2 (09:12)
[2019-08-14] MEDS: MAGNESIUM OXIDE 400 MG TABLET PO SCH ×3 (09:12→17:05)
[2019-08-14] MEDS: PANTOPRAZOLE SODIUM 40 MG DR TABLET PO SCH (09:12)
[2019-08-14] MEDS: AmLODIPine BESYLATE 10 MG TABLET PO SCH (09:12)
[2019-08-14] MEDS: ALLOPURINOL 100 MG TABLET PO SCH ×2 (09:12)
[2019-08-14] MEDS: ESCITALOPRAM OXALATE 10 MG TABLET PO SCH (09:12)
[2019-08-14] MEDS: ASPIRIN 81 MG CHEWABLE TABLET PO SCH (09:13)
[2019-08-14] MEDS: FLUTICASONE PROPIONATE 50 MCG/SPRAY 16 GM NASAL SPRAY NASAL SCH (09:13)
[2019-08-14] MEDS: BUDESONIDE/FORMOTEROL FUMARATE 160-4.5 MCG/PUFF 6.9 GM INHALER IH SCH ×2 (09:13)
[2019-08-14 12:10] LABS: GLUCOMETER DEV NAME(LOC) 2WR.2; GLUCOSE,POINT OF CARE 143 MG/DL (70-110)
[2019-08-14] MEDS: INSULIN LISPRO 100 UNITS/ML SQ PRN (12:38)
[2019-08-14] MEDS ORDERED: ASPI81 PO (13:31)
[2019-08-14] MEDS ORDERED: AMLO10TA7 PO (13:39)
[2019-08-14] MEDS ORDERED: CLOP75TA3 PO (13:39)
[2019-08-14] MEDS ORDERED: FLUT16H NASAL (13:39)
[2019-08-14] MEDS ORDERED: PANT40TA25 PO (13:39)
[2019-08-14] MEDS ORDERED: FLUT1BLS3 IH (13:42)
[2019-08-14] MEDS ORDERED: KDUR20 PO (13:42)
[2019-08-14] MEDS ORDERED: DULA0.75 SQ (13:42)
[2019-08-14] MEDS ORDERED: MAGOX PO (13:42)
[2019-08-14 15:30] VITALS: BP 106/59
[2019-08-14 20:11] LABS: GLUCOMETER DEV NAME(LOC) 2WR.2; GLUCOSE,POINT OF CARE 164 MG/DL (70-110)
== END 2019-08-14 18:00 | disposition home health service (06) | DRG 56 ==
LOC: 2WR 18:55
PROVIDERS: ADMIT Physical Medicine & Rehabilitation; ATTEND Physical Medicine & Rehabilitation
DX: I69.354 Hemiplegia and hemiparesis following cerebral infarction affecting left non-dominant side (principal); I63.9 Cerebral infarction, unspecified; E11.9 Type 2 diabetes mellitus without complications; E66.9 Obesity, unspecified; E78.5 Hyperlipidemia, unspecified; E83.42 Hypomagnesemia; F17.210 Nicotine dependence, cigarettes, uncomplicated; F41.9 Anxiety disorder, unspecified; G47.33 Obstructive sleep apnea (adult) (pediatric); I10 Essential (primary) hypertension; I25.10 Atherosclerotic heart disease of native coronary artery without angina pectoris; J44.9 Chronic obstructive pulmonary disease, unspecified; Z79.899 Other long term (current) drug therapy; Z90.710 Acquired absence of both cervix and uterus; Z91.81 History of falling; Z68.27 Body mass index [BMI] 27.0-27.9, adult; M19.90 Unspecified osteoarthritis, unspecified site; G43.909 Migraine, unspecified, not intractable, without status migrainosus; Z98.51 Tubal ligation status; F43.21 Adjustment disorder with depressed mood; Z88.0 Allergy status to penicillin; Z88.8 Allergy status to other drugs, medicaments and biological substances; Z91.19 Patient's noncompliance with other medical treatment and regimen
CPT/HCPCS: 83036; 83735; 84439; 87081; 87086; 92507; 92508; 92523; 97110; 97112; 97116; 97150; 97162; 97166; 97530; 97535; 99366; Q0162

== ENCOUNTER 2019-10-26 18:45 | Inpatient (IN) | payer MEDICARE, OTHER ==
[~2019-10-26] VITALS: Ht 167.6 cm; Wt 59.7 kg
[~2019-10-26 18:45] MED LIST changes: +AMLO10TA7 PO; -AMLO1TAB15 PO; -ASPI-1484 PO; +ASPI-728 PO; -BUDE10.2 IH; +CLOP75TA3 PO; -CYAN1TAB44 PO; -DICL2100G TP; +DULA0.75 SQ; -ESCI10TA54 PO; +ESCI10TA61 PO; +FLUT16H NASAL; +FLUT1BLS3 IH; -GABA-529 PO; +KDUR20 PO; +MAGOX PO; -MECL-111 PO; +MECL-160 PO; -MIRA50TA PO; -NIAC-8 PO; -OMEG-76 PO; -OMEP20 PO; +PANT40TA25 PO; -VITA400T9 PO; -[UNRECOGNIZED DRUG - OTHER] PO
[2019-10-26 19:03] LABS: GLUCOSE,POINT OF CARE 120 MG/DL (70-110)
[2019-10-26] MEDS ORDERED: SODIUM CHLORIDE 0.9% 1,000 ML IV ONE (19:36)
[2019-10-26] MEDS ORDERED: CHOL100018 PO (19:42)
[2019-10-26] MEDS ORDERED: METF-960 PO (19:42)
[2019-10-26] MEDS ORDERED: HYDR25TA84 PO (19:42)
[2019-10-26] MEDS ORDERED: ONDANSETRON HCL 4 MG/2 ML VIAL IVP ONE ×2 (19:45→21:45)
[2019-10-26 19:59] LABS: BASOPHILS % (AUTO) 0.4 % (0.0-2.0); HEMATOCRIT 38.9 % (36-46); HEMOGLOBIN 12.7 g/dL (12.0-16.0); LYMPHOCYTES % (AUTO) 24.5 % (22.0-44.0); MEAN CORPUSCULAR HEMOGLOBIN 28.4 pg (26.0-34.0); MEAN CORPUSCULAR HGB CONC 32.8 G/dL (31.0-37.0); MEAN CORPUSCULAR VOLUME 87 fL (80-100); MONOCYTES # (AUTO) 0.9 K/uL (0.1-1.0); MONOCYTES % (AUTO) 7.4 % (2.0-9.0); NEUTROPHILS # (AUTO) 8.1 K/uL (1.8-7.7); NEUTROPHILS % (AUTO) 65.7 % (40.0-70.0); PLATELET COUNT (AUTO) 277 K/uL (150-450); RED BLOOD CELL COUNT(AUTO) 4.48 MIL/uL (4.00-5.20); RED CELL DISTRIBUTION WIDTH 17.2 % (11.5-14.5)
[2019-10-26 20:12] LABS: CALCIUM, TOTAL 9.7 mg/dL (8.8-10.5); CREATININE 1.14 mg/dL (0.60-1.30); POTASSIUM 3.8 mmol/L (3.5-5.1)
[2019-10-26 20:18] LABS: ALBUMIN 3.8 g/dL (3.4-5.0); BILIRUBIN,TOTAL 0.5 mg/dL (0.1-1.0)
[2019-10-26 20:59] LABS: APPEARANCE,URINE CLEAR (CLEAR); BILIRUBIN,URINE NEGATIVE (NEGATIVE); GLUCOSE, URINE (UA) NEGATIVE (NEGATIVE); KETONES,URINE NEGATIVE (NEGATIVE); LEUKOCYTE ESTERASE ,URINE MODERATE (NEGATIVE); NITRATE,URINE NEGATIVE (NEGATIVE); OCCULT BLOOD,URINE NEGATIVE (NEGATIVE); PROTEIN,URINE NEGATIVE (NEGATIVE); UROBILINOGEN,URINE 0.2 mg/dL (<=1.0)
[2019-10-26 21:09] LABS: BACTERIA,URINE None Seen /HPF (None Seen); RBC,URINE None Seen /HPF (0-2); SQUAMOUS EPITHELIAL CELL,UR Few /LPF (None Seen)
[2019-10-26] MEDS ORDERED: MORPHINE SULFATE 4 MG/ML SYRINGE IVP ONE (21:45)
[2019-10-26] MEDS ORDERED: MORPHINE SULFATE 2 MG/ML SYRINGE IVP ONE (21:45)
[2019-10-26] MEDS ORDERED: SODIUM CHLORIDE 0.9% 100 ML ONE (22:07)
[2019-10-26] MEDS ORDERED: IOVERSOL 350 MG/ML 100 ML VIAL ONE (22:08)
[2019-10-26] MEDS ORDERED: ONDANSETRON HCL 4 MG/2 ML VIAL IVP PRN (23:45)
[2019-10-26] MEDS ORDERED: ACETAMINOPHEN 325 MG TABLET PO PRN (23:45)
[2019-10-26] MEDS ORDERED: 0.9% SODIUM CHLORIDE 10 ML SYRINGE IVP PRN (23:45)
[2019-10-27 01:30] VITALS: BP 131/78
[2019-10-27] MEDS ORDERED: SULFAMETHOX/TRIMETH DS 800-160 MG/TABLET PO ONE (05:00)
[2019-10-27] MEDS ORDERED: MetroNIDAZOLE 250 MG TABLET PO ONE (05:00)
[2019-10-27] MEDS ORDERED: MetroNIDAZOLE 500 MG TABLET PO ONE (06:30)
[2019-10-27 07:01] LABS: GLUCOMETER DEV NAME(LOC) 6N.2; GLUCOSE,POINT OF CARE 96 MG/DL (70-110)
[2019-10-27 07:26] VITALS: BP 127/76
[2019-10-27] MEDS ORDERED: DEXTROSE 50%-WATER 25 GM/50 ML SYRINGE IVP PRN (08:00)
[2019-10-27] MEDS ORDERED: ALBUTEROL SULFATE 2.5 MG/0.5 ML NEB SOLUTION NEB PRN (08:00)
[2019-10-27] MEDS ORDERED: INSULIN LISPRO 100 UNITS/ML SQ PRN (08:00)
[2019-10-27] MEDS: DOCUSATE SODIUM 100 MG CAPSULE PO SCH ×2 (08:38→20:18)
[2019-10-27] MEDS: CIPROFLOXACIN HCL 500 MG TABLET PO SCH ×2 (08:38→20:18)
[2019-10-27] MEDS: METOPROLOL TARTRATE 25 MG TABLET PO SCH ×2 (08:38→20:18)
[2019-10-27] MEDS: FAMOTIDINE 20 MG TABLET PO SCH (08:38)
[2019-10-27] MEDS: ASPIRIN 81 MG CHEWABLE TABLET PO SCH (08:38)
[2019-10-27] MEDS: MetroNIDAZOLE 500 MG TABLET PO SCH ×3 (08:38→23:27)
[2019-10-27] MEDS: HEPARIN SODIUM,PORCINE 5,000 UNITS/ML VIAL SQ SCH ×3 (08:39→23:27)
[2019-10-27 11:09] VITALS: BP 121/63
[2019-10-27] MEDS: NYSTATIN 500,000 UNITS/5 ML SUSPENSION UDCUP PO SCH ×3 (11:18→23:27)
[2019-10-27 11:38] LABS: GLUCOMETER DEV NAME(LOC) 6N.2; GLUCOSE,POINT OF CARE 94 MG/DL (70-110)
[2019-10-27 15:22] VITALS: BP 124/64
[2019-10-27] MEDS: ACETAMINOPHEN 325 MG TABLET PO PRN (17:17)
[2019-10-27 17:58] LABS: GLUCOMETER DEV NAME(LOC) 6N.2; GLUCOSE,POINT OF CARE 96 MG/DL (70-110)
[2019-10-27 19:50] VITALS: BP 118/64
[2019-10-27] MEDS ORDERED: ATORVASTATIN CALCIUM 20 MG TABLET PO SCH (21:00)
[2019-10-27 21:30] LABS: GLUCOMETER DEV NAME(LOC) 6N.2; GLUCOSE,POINT OF CARE 135 MG/DL (70-110)
[2019-10-27 23:26] VITALS: BP 130/73
[2019-10-28 04:19] VITALS: BP 133/77
[2019-10-28 06:39] LABS: GLUCOMETER DEV NAME(LOC) 6N.2; GLUCOSE,POINT OF CARE 93 MG/DL (70-110)
[2019-10-28] MEDS: HEPARIN SODIUM,PORCINE 5,000 UNITS/ML VIAL SQ SCH (08:19)
[2019-10-28] MEDS: CIPROFLOXACIN HCL 500 MG TABLET PO SCH (08:19)
[2019-10-28] MEDS: METOPROLOL TARTRATE 25 MG TABLET PO SCH (08:19)
[2019-10-28] MEDS: DOCUSATE SODIUM 100 MG CAPSULE PO SCH (08:20)
[2019-10-28] MEDS: FAMOTIDINE 20 MG TABLET PO SCH (08:20)
[2019-10-28] MEDS: ASPIRIN 81 MG CHEWABLE TABLET PO SCH (08:20)
[2019-10-28] MEDS: NYSTATIN 500,000 UNITS/5 ML SUSPENSION UDCUP PO SCH (08:20)
[2019-10-28 08:21] VITALS: BP 138/72
[2019-10-28] MEDS: MetroNIDAZOLE 500 MG TABLET PO SCH (08:21)
[2019-10-28] MEDS: ACETAMINOPHEN 325 MG TABLET PO PRN (08:24)
[2019-10-28 11:50] VITALS: BP 117/69
[2019-10-28 12:02] LABS: GLUCOMETER DEV NAME(LOC) 6N.2; GLUCOSE,POINT OF CARE 131 MG/DL (70-110)
[2019-10-28] MEDS ORDERED: METR500 PO (12:39)
[2019-10-28] MEDS ORDERED: CIPR-278 PO (12:39)
== END 2019-10-28 13:35 | disposition home or self-care (01) | DRG 392 ==
LOC: EMS 18:45 → 6N 23:30
PROVIDERS: ADMIT Internal Medicine; ATTEND Internal Medicine
DX: K57.92 Diverticulitis of intestine, part unspecified, without perforation or abscess without bleeding (principal); E11.9 Type 2 diabetes mellitus without complications; J44.9 Chronic obstructive pulmonary disease, unspecified; I25.10 Atherosclerotic heart disease of native coronary artery without angina pectoris; F41.9 Anxiety disorder, unspecified; M19.90 Unspecified osteoarthritis, unspecified site; F32.9 Major depressive disorder, single episode, unspecified; I11.9 Hypertensive heart disease without heart failure; M10.9 Gout, unspecified; G43.909 Migraine, unspecified, not intractable, without status migrainosus; F17.210 Nicotine dependence, cigarettes, uncomplicated; Z88.0 Allergy status to penicillin; Z86.73 Personal history of transient ischemic attack (TIA), and cerebral infarction without residual deficits; Z88.8 Allergy status to other drugs, medicaments and biological substances
CPT/HCPCS: 74177; 83605; 87040; 87086; 87205; 93005; J1644; J2270; J2405; J7030; J7050

== ENCOUNTER 2021-05-24 09:15 | Inpatient (IN) | payer MEDICARE, OTHER ==
[~2021-05-24] VITALS: Ht 154.9 cm; Wt 58.0 kg
[~2021-05-24 09:15] MED LIST changes: -ALLO100T PO; +ALLO100T2 PO; +AMLO-258 PO; -AMLO10TA7 PO; +ASPI-1450 PO; -ASPI-728 PO; +CHOL-35 PO; -CHOL100018 PO; +CIPR-278 PO; -CLOP75TA3 PO; +CLOP75TA60 PO; +ESCI10 PO; -ESCI10TA61 PO; -GEMF600T5 PO; +GEMF600T90 PO; -HYDR-2924 PO; +HYDR25TA84 PO; -KDUR20 PO; +MAGN400T7 PO; -MAGOX PO; -METF-446 PO; +METF-960 PO; +METR500 PO; +MONT-35 PO; -MONT10TA21 PO; +PANT-31 PO; -PANT40TA25 PO; +POTA20TA83 PO
[2021-05-24] MEDS ORDERED: SODIUM CHLORIDE 0.9% 100 ML ONE (09:36)
[2021-05-24] MEDS ORDERED: IOHEXOL 350 MG/ML 75 ML VIAL ONE (09:36)
[2021-05-24 09:51] LABS: BASOPHILS % (AUTO) 0.7 % (0.0-2.0); EOSINOPHILS % (AUTO) 3.6 % (1.0-6.0); HEMATOCRIT 41.8 % (36-46); HEMOGLOBIN 13.4 g/dL (12.0-16.0); LYMPHOCYTES # (AUTO) 3.2 K/uL (1.0-4.8); LYMPHOCYTES % (AUTO) 38.7 % (22.0-44.0); MEAN CORPUSCULAR HEMOGLOBIN 28.2 pg (26.0-34.0); MEAN CORPUSCULAR HGB CONC 32.2 G/dL (31.0-37.0); MEAN CORPUSCULAR VOLUME 88 fL (80-100); MONOCYTES # (AUTO) 0.5 K/uL (0.1-1.0); MONOCYTES % (AUTO) 5.5 % (2.0-9.0); NEUTROPHILS # (AUTO) 4.3 K/uL (1.8-7.7); NEUTROPHILS % (AUTO) 51.5 % (40.0-70.0); PLATELET COUNT (AUTO) 233 K/uL (150-450); RED BLOOD CELL COUNT(AUTO) 4.76 MIL/uL (4.00-5.20); RED CELL DISTRIBUTION WIDTH 15.6 % (11.5-14.5)
[2021-05-24 10:16] LABS: PROTHROMBIN TIME 10.3 SEC (9.4-11.6)
[2021-05-24 10:37] LABS: ANION GAP 8 mmol/L (8-16); CALCIUM, TOTAL 8.9 mg/dL (8.8-10.5); CARBON DIOXIDE 26 mmol/L (22-29); CHLORIDE 103 mmol/L (98-107); CREATININE 0.74 mg/dL (0.60-1.30); GLOMERULAR FILTR. RATE CALC > 60 mL/min (>60); GLUCOSE,RANDOM 98 mg/dL (70-110); POTASSIUM 3.4 mmol/L (3.5-5.1); SODIUM SERUM 137 mmol/L (136-145); UREA NITROGEN, BLOOD 13 mg/dL (7-18)
[2021-05-24 10:39] LABS: COVID AG,FIA SOURCE NASOPHARYNGEAL
[2021-05-24 10:46] LABS: ALANINE AMINOTRANSFERASE 19 U/L (12-78); ALKALINE PHOSPHATASE 56 U/L (46-116); ASPARTATE AMINOTRANSFERASE 22 U/L (15-37); BILIRUBIN,TOTAL 0.9 mg/dL (0.1-1.0); TOTAL PROTEIN, SERUM 8.2 g/dL (6.4-8.2)
[2021-05-24] MEDS ORDERED: MORPHINE SULFATE 4 MG/ML SYRINGE IVP ONE (11:30)
[2021-05-24] MEDS ORDERED: ONDANSETRON HCL 4 MG/2 ML VIAL IVP ONE (11:30)
[2021-05-24] MEDS ORDERED: ASPIRIN 325 MG DR TABLET PO ONE (11:30)
[2021-05-24 11:56] LABS: AMPHET/METH SCREEN,URINE NEGATIVE (NEGATIVE); BARBITURATE SCREEN, URINE NEGATIVE (NEGATIVE); BENZODIAZEPINES SCREEN,URINE NEGATIVE (NEGATIVE); CANNABINOID SCREEN,URINE NEGATIVE (NEGATIVE); COCAINE SCREEN,URINE NEGATIVE (NEGATIVE); METHADONE SCREEN, URINE NEGATIVE (NEGATIVE); OPIATE SCREEN,URINE NEGATIVE (NEGATIVE)
[2021-05-24 12:03] LABS: PHENCYCLIDINE SCREEN,URINE NEGATIVE (NEGATIVE)
[2021-05-24] MEDS ORDERED: CLOPIDOGREL BISULFATE 75 MG TABLET PO ONE (13:45)
[2021-05-24] MEDS ORDERED: ONDANSETRON HCL 4 MG/2 ML VIAL IVP PRN (15:15)
[2021-05-24] MEDS ORDERED: HYDROCODONE/ACETAMINOPHEN 5-325 MG TABLET PO PRN (15:15)
[2021-05-24] MEDS ORDERED: ZOLPIDEM TARTRATE 5 MG TABLET PO PRN (15:15)
[2021-05-24] MEDS ORDERED: MAGNESIUM HYDROXIDE SUSPENSION 30 ML UDCUP PO PRN (15:15)
[2021-05-24] MEDS ORDERED: MORPHINE SULFATE 2 MG/ML SYRINGE IVP PRN (15:15)
[2021-05-24] MEDS ORDERED: BISACODYL 10 MG RECTAL RECTAL SUPPOSITORY PR PRN (15:15)
[2021-05-24] MEDS ORDERED: ACETAMINOPHEN 325 MG TABLET PO PRN (15:15)
[2021-05-24] MEDS ORDERED: GEMFIBROZIL 600 MG TABLET PO SCH (17:00)
[2021-05-24 17:37] VITALS: BP 173/95
[2021-05-24] MEDS: MetFORMIN HCL 500 MG TABLET PO SCH (18:52)
[2021-05-24 19:18] VITALS: BP 146/65
[2021-05-24] MEDS: ALLOPURINOL 100 MG TABLET PO SCH (20:16)
[2021-05-24] MEDS: METOPROLOL TARTRATE 25 MG TABLET PO SCH (20:16)
[2021-05-24] MEDS: DOCUSATE SODIUM 100 MG CAPSULE PO SCH (20:16)
[2021-05-24] MEDS: SIMVASTATIN 40 MG TABLET PO SCH (20:16)
[2021-05-24] MEDS ORDERED: POTASSIUM CHLORIDE 10% 40 MEQ/30 ML LIQUID UDCUP PO ONE (23:00)
[2021-05-24 23:24] VITALS: BP 139/78
[2021-05-25] MEDS ORDERED: POTASSIUM CHLORIDE 20 MEQ ER TABLET PO ONE (00:30)
[2021-05-25 00:55] LABS: GLUCOMETER DEV NAME(LOC) 5S.1; GLUCOSE,POINT OF CARE 85 MG/DL (70-110)
[2021-05-25 04:15] VITALS: BP 128/73
[2021-05-25 07:19] VITALS: BP 136/86
[2021-05-25 07:56] LABS: CHOL/HDL RATIO 2.7 (3.9-5.7); CHOLESTEROL 135 mg/dL (131-200); HDL CHOLESTEROL 50 mg/dL (40-60); LDL CHOL (CALC.) 52 mg/dL (0-130); THYROID STIMULATING HORMONE 9.85 uIU/mL (0.36-3.74); TRIGLYCERIDES 165 mg/dL (15-150)
[2021-05-25 08:19] LABS: ANION GAP 13 mmol/L (8-16); CALCIUM, TOTAL 8.6 mg/dL (8.8-10.5); CARBON DIOXIDE 25 mmol/L (22-29); CHLORIDE 102 mmol/L (98-107); GLUCOSE,RANDOM 85 mg/dL (70-110); POTASSIUM 4.2 mmol/L (3.5-5.1); SODIUM SERUM 140 mmol/L (136-145); UREA NITROGEN, BLOOD 9 mg/dL (7-18)
[2021-05-25 08:21] LABS: GLOMERULAR FILTR. RATE CALC > 60 mL/min (>60)
[2021-05-25] MEDS: DOCUSATE SODIUM 100 MG CAPSULE PO SCH ×2 (08:32→20:25)
[2021-05-25 08:33] LABS: BILIRUBIN,URINE NEGATIVE (NEGATIVE); GLUCOSE, URINE (UA) NEGATIVE (NEGATIVE); KETONES,URINE NEGATIVE (NEGATIVE); LEUKOCYTE ESTERASE ,URINE SMALL (NEGATIVE); NITRATE,URINE NEGATIVE (NEGATIVE); OCCULT BLOOD,URINE LARGE (NEGATIVE); PH,URINE 6.5 (5.0-8.0); PROTEIN,URINE POS 1+ (NEGATIVE); UROBILINOGEN,URINE 0.2 mg/dL (<=1.0)
[2021-05-25] MEDS: MONTELUKAST SODIUM 10 MG TABLET PO SCH (08:33)
[2021-05-25] MEDS: CLOPIDOGREL BISULFATE 75 MG TABLET PO SCH (08:33)
[2021-05-25] MEDS: PANTOPRAZOLE SODIUM 40 MG DR TABLET PO SCH (08:33)
[2021-05-25] MEDS: AmLODIPine BESYLATE 10 MG TABLET PO SCH (08:33)
[2021-05-25] MEDS: ALLOPURINOL 100 MG TABLET PO SCH ×2 (08:34→20:25)
[2021-05-25] MEDS: METOPROLOL TARTRATE 25 MG TABLET PO SCH ×2 (08:34→20:25)
[2021-05-25] MEDS: MetFORMIN HCL 500 MG TABLET PO SCH ×2 (08:34→18:10)
[2021-05-25] MEDS: CHOLECALCIFEROL (VIT D3) 1,000 UNITS [25 MCG] TABLET PO SCH (08:34)
[2021-05-25 08:37] LABS: APPEARANCE,URINE HAZY (CLEAR)
[2021-05-25 08:41] LABS: BACTERIA,URINE None Seen /HPF (None Seen); RBC,URINE 26-50 /HPF (0-2)
[2021-05-25] MEDS ORDERED: HydrALAZINE HCL 25 MG TABLET PO SCH (09:00)
[2021-05-25 11:13] VITALS: BP 135/49
[2021-05-25] MEDS: GEMFIBROZIL 600 MG TABLET PO SCH ×2 (14:56→17:53)
[2021-05-25] MEDS: FLUTICASONE PROPIONATE 50 MCG/SPRAY 16 GM NASAL SPRAY NASAL SCH (14:56)
[2021-05-25 15:44] VITALS: BP 147/81
[2021-05-25 19:42] VITALS: BP 145/76
[2021-05-25] MEDS: SIMVASTATIN 40 MG TABLET PO SCH (20:25)
[2021-05-25 23:34] VITALS: BP 151/94
[2021-05-26 04:34] VITALS: BP 148/58
[2021-05-26] MEDS: GEMFIBROZIL 600 MG TABLET PO SCH (06:13)
[2021-05-26 07:48] VITALS: BP 127/76
[2021-05-26] MEDS: MetFORMIN HCL 500 MG TABLET PO SCH (08:58)
[2021-05-26] MEDS: AmLODIPine BESYLATE 10 MG TABLET PO SCH (08:59)
[2021-05-26] MEDS: PANTOPRAZOLE SODIUM 40 MG DR TABLET PO SCH (08:59)
[2021-05-26] MEDS: MONTELUKAST SODIUM 10 MG TABLET PO SCH (09:00)
[2021-05-26] MEDS: ALLOPURINOL 100 MG TABLET PO SCH (09:00)
[2021-05-26] MEDS ORDERED: TICAGRELOR 90 MG TABLET PO SCH (09:00)
[2021-05-26] MEDS: CHOLECALCIFEROL (VIT D3) 1,000 UNITS [25 MCG] TABLET PO SCH (09:00)
[2021-05-26] MEDS: CLOPIDOGREL BISULFATE 75 MG TABLET PO SCH (09:01)
[2021-05-26] MEDS: DOCUSATE SODIUM 100 MG CAPSULE PO SCH (09:02)
[2021-05-26] MEDS: FLUTICASONE PROPIONATE 50 MCG/SPRAY 16 GM NASAL SPRAY NASAL SCH (10:35)
[2021-05-26 11:40] VITALS: BP 130/74
[2021-05-26 12:37] LABS: CHOL/HDL RATIO 2.7 (3.9-5.7)
[2021-05-26] MEDS ORDERED: DOCU-270 PO (14:33)
[2021-05-26] MEDS ORDERED: TICA90TA PO (14:35)
[2021-05-26] MEDS ORDERED: ACET-2247 PO (14:36)
[2021-05-26] MEDS ORDERED: SODIUM CHLORIDE 0.9% 500 ML IV ONE (14:43)
== END 2021-05-26 16:20 | DRG 65 ==
LOC: EMS 09:22 → 5S 16:12
PROVIDERS: ADMIT Internal Medicine; ATTEND Internal Medicine
DX: I63.9 Cerebral infarction, unspecified (principal); E44.0 Moderate protein-calorie malnutrition; I69.354 Hemiplegia and hemiparesis following cerebral infarction affecting left non-dominant side; E11.9 Type 2 diabetes mellitus without complications; E78.5 Hyperlipidemia, unspecified; E87.6 Hypokalemia; J84.10 Pulmonary fibrosis, unspecified; F17.210 Nicotine dependence, cigarettes, uncomplicated; J44.9 Chronic obstructive pulmonary disease, unspecified; R29.810 Facial weakness; E55.9 Vitamin D deficiency, unspecified; F32.9 Major depressive disorder, single episode, unspecified; F41.9 Anxiety disorder, unspecified; I11.9 Hypertensive heart disease without heart failure; G43.909 Migraine, unspecified, not intractable, without status migrainosus; Z20.822 Contact with and (suspected) exposure to COVID-19; Z88.0 Allergy status to penicillin; Z88.8 Allergy status to other drugs, medicaments and biological substances; Z79.899 Other long term (current) drug therapy; Z79.02 Long term (current) use of antithrombotics/antiplatelets; Z90.710 Acquired absence of both cervix and uterus; Z68.24 Body mass index [BMI] 24.0-24.9, adult; Z98.51 Tubal ligation status
CPT/HCPCS: 70450; 70496; 70551; 71045; 80048; 80053; 80061; 81001; 82962; 84443; 84484; 85025; 85610; 85730; 86850; 86900; 86901; 92507; 92526; 92610; 93005; 93306; 93880; 97116; 97162; 97166; 97530; 97535; 99291; J2270; J2405; J7040; J7050; Q9967; 36415-L1; 36415-TC

== ENCOUNTER 2021-05-26 13:24 | Inpatient (IN) | payer MEDICARE, OTHER ==
[~2021-05-26] VITALS: Ht 157.5 cm; Wt 57.2 kg
[2021-05-26] MEDS ORDERED: DOCU-270 PO (14:33)
[2021-05-26] MEDS ORDERED: TICA90TA PO (14:35)
[2021-05-26] MEDS ORDERED: ACET-2247 PO (14:36)
[2021-05-26] MEDS ORDERED: SODIUM CHLORIDE 0.9% 500 ML IV ONE (16:20)
[2021-05-26] MEDS ORDERED: DEXTROSE 50%-WATER 25 GM/50 ML SYRINGE IVP PRN (17:00)
[2021-05-26 17:14] VITALS: BP 153/85
[2021-05-26 18:21] LABS: GLUCOMETER DEV NAME(LOC) 2WR.1C; GLUCOSE,POINT OF CARE 102 MG/DL (70-110)
[2021-05-26] MEDS: MetFORMIN HCL 500 MG TABLET PO SCH (18:49)
[2021-05-26] MEDS: GEMFIBROZIL 600 MG TABLET PO SCH (18:50)
[2021-05-26 21:18] VITALS: BP 148/97
[2021-05-26] MEDS: SIMVASTATIN 40 MG TABLET PO SCH (21:21)
[2021-05-26] MEDS: TICAGRELOR 90 MG TABLET PO SCH (21:21)
[2021-05-26] MEDS: DOCUSATE SODIUM 100 MG CAPSULE PO SCH (21:21)
[2021-05-26] MEDS: METOPROLOL TARTRATE 25 MG TABLET PO SCH (21:21)
[2021-05-26] MEDS: ETHYL ALCOHOL 62% ANTISEPTIC NASAL INHALANT 0.6 ML AMPUL NASAL SCH (21:21)
[2021-05-26] MEDS: ALLOPURINOL 100 MG TABLET PO SCH (21:21)
[2021-05-26] MEDS: SENNA 187 MG TABLET PO SCH (21:21)
[2021-05-26 22:09] LABS: GLUCOMETER DEV NAME(LOC) 2WR.2B; GLUCOSE,POINT OF CARE 149 MG/DL (70-110)
[2021-05-26] MEDS ORDERED: DOCUSATE SODIUM 283 MG/5 ML MINI-ENEMA PR PRN (23:30)
[2021-05-27 00:26] VITALS: BP 151/73
[2021-05-27 05:30] LABS: GLUCOMETER DEV NAME(LOC) 2WR.2B; GLUCOSE,POINT OF CARE 89 MG/DL (70-110)
[2021-05-27 06:27] LABS: BASOPHILS % (AUTO) 1.1 % (0.0-2.0); EOSINOPHILS % (AUTO) 7.7 % (1.0-6.0); HEMATOCRIT 41.5 % (36-46); HEMOGLOBIN 13.3 g/dL (12.0-16.0); LYMPHOCYTES # (AUTO) 2.7 K/uL (1.0-4.8); LYMPHOCYTES % (AUTO) 38.9 % (22.0-44.0); MEAN CORPUSCULAR HEMOGLOBIN 28.4 pg (26.0-34.0); MEAN CORPUSCULAR HGB CONC 32.2 G/dL (31.0-37.0); MEAN CORPUSCULAR VOLUME 88 fL (80-100); MONOCYTES # (AUTO) 0.6 K/uL (0.1-1.0); MONOCYTES % (AUTO) 8.6 % (2.0-9.0); NEUTROPHILS # (AUTO) 3.1 K/uL (1.8-7.7); NEUTROPHILS % (AUTO) 43.7 % (40.0-70.0); PLATELET COUNT (AUTO) 224 K/uL (150-450); RED BLOOD CELL COUNT(AUTO) 4.71 MIL/uL (4.00-5.20); RED CELL DISTRIBUTION WIDTH 16.2 % (11.5-14.5)
[2021-05-27 06:48] LABS: ALANINE AMINOTRANSFERASE 16 U/L (12-78); ALBUMIN 3.3 g/dL (3.4-5.0); ALKALINE PHOSPHATASE 49 U/L (46-116); ANION GAP 14 mmol/L (8-16); ASPARTATE AMINOTRANSFERASE 28 U/L (15-37); BILIRUBIN,TOTAL 1.4 mg/dL (0.1-1.0); CALCIUM, TOTAL 8.9 mg/dL (8.8-10.5); CARBON DIOXIDE 20 mmol/L (22-29); CHLORIDE 108 mmol/L (98-107); CREATININE 0.85 mg/dL (0.60-1.30); GLUCOSE,RANDOM 105 mg/dL (70-110); POTASSIUM 4.1 mmol/L (3.5-5.1); SODIUM SERUM 142 mmol/L (136-145); TOTAL PROTEIN, SERUM 7.1 g/dL (6.4-8.2); UREA NITROGEN, BLOOD 11 mg/dL (7-18)
[2021-05-27 06:49] LABS: GLOMERULAR FILTR. RATE CALC > 60 mL/min (>60)
[2021-05-27 08:19] VITALS: BP 147/78
[2021-05-27] MEDS: ACETAMINOPHEN 325 MG TABLET PO PRN ×2 (08:19→16:48)
[2021-05-27] MEDS: MetFORMIN HCL 500 MG TABLET PO SCH ×2 (08:19→17:52)
[2021-05-27] MEDS: ETHYL ALCOHOL 62% ANTISEPTIC NASAL INHALANT 0.6 ML AMPUL NASAL SCH ×2 (08:19→20:27)
[2021-05-27] MEDS: GEMFIBROZIL 600 MG TABLET PO SCH ×2 (08:20→16:39)
[2021-05-27] MEDS: FLUTICASONE PROPIONATE 50 MCG/SPRAY 16 GM NASAL SPRAY NASAL SCH (08:28)
[2021-05-27] MEDS: CHOLECALCIFEROL (VIT D3) 2,000 UNITS [50 MCG] TABLET PO SCH (08:29)
[2021-05-27] MEDS: DOCUSATE SODIUM 100 MG CAPSULE PO SCH ×2 (08:29→20:20)
[2021-05-27] MEDS: METOPROLOL TARTRATE 25 MG TABLET PO SCH ×2 (08:30→20:25)
[2021-05-27] MEDS: AmLODIPine BESYLATE 10 MG TABLET PO SCH (08:30)
[2021-05-27] MEDS: ALLOPURINOL 100 MG TABLET PO SCH ×2 (08:30→20:25)
[2021-05-27] MEDS: HydrALAZINE HCL 25 MG TABLET PO SCH (08:30)
[2021-05-27] MEDS: MONTELUKAST SODIUM 10 MG TABLET PO SCH (08:31)
[2021-05-27] MEDS: PANTOPRAZOLE SODIUM 40 MG DR TABLET PO SCH (08:34)
[2021-05-27] MEDS: TICAGRELOR 90 MG TABLET PO SCH ×2 (08:35→20:24)
[2021-05-27] MEDS ORDERED: CLOPIDOGREL BISULFATE 75 MG TABLET PO SCH (09:00)
[2021-05-27 14:10] LABS: GLUCOMETER DEV NAME(LOC) 2WR.2B; GLUCOSE,POINT OF CARE 124 MG/DL (70-110)
[2021-05-27 17:04] VITALS: BP 126/71
[2021-05-27 20:24] VITALS: BP 129/78
[2021-05-27] MEDS: SENNA 187 MG TABLET PO SCH (20:26)
[2021-05-27] MEDS: SIMVASTATIN 40 MG TABLET PO SCH (20:26)
[2021-05-27 21:20] LABS: GLUCOMETER DEV NAME(LOC) 2WR.2B; GLUCOSE,POINT OF CARE 123 MG/DL (70-110)
[2021-05-28 03:20] LABS: GLUCOMETER DEV NAME(LOC) 2WR.1C; GLUCOSE,POINT OF CARE 107 MG/DL (70-110)
[2021-05-28 04:00] VITALS: BP 132/76
[2021-05-28] MEDS: GEMFIBROZIL 600 MG TABLET PO SCH ×2 (05:39→17:03)
[2021-05-28 07:31] VITALS: BP 136/66
[2021-05-28] MEDS: MetFORMIN HCL 500 MG TABLET PO SCH ×2 (08:10→17:43)
[2021-05-28] MEDS: MONTELUKAST SODIUM 10 MG TABLET PO SCH (08:11)
[2021-05-28] MEDS: HydrALAZINE HCL 25 MG TABLET PO SCH (08:12)
[2021-05-28] MEDS: FLUTICASONE PROPIONATE 50 MCG/SPRAY 16 GM NASAL SPRAY NASAL SCH (08:12)
[2021-05-28] MEDS: CHOLECALCIFEROL (VIT D3) 2,000 UNITS [50 MCG] TABLET PO SCH (08:12)
[2021-05-28] MEDS: ASPIRIN 81 MG CHEWABLE TABLET PO SCH (08:12)
[2021-05-28] MEDS: ALLOPURINOL 100 MG TABLET PO SCH ×2 (08:12→21:05)
[2021-05-28] MEDS: METOPROLOL TARTRATE 25 MG TABLET PO SCH ×2 (08:12→21:05)
[2021-05-28] MEDS: TICAGRELOR 90 MG TABLET PO SCH ×2 (08:12→21:05)
[2021-05-28] MEDS: PANTOPRAZOLE SODIUM 40 MG DR TABLET PO SCH (08:13)
[2021-05-28] MEDS: DOCUSATE SODIUM 100 MG CAPSULE PO SCH ×2 (08:13→21:00)
[2021-05-28] MEDS: ESCITALOPRAM OXALATE 10 MG TABLET PO SCH (08:13)
[2021-05-28] MEDS: AmLODIPine BESYLATE 10 MG TABLET PO SCH (08:13)
[2021-05-28] MEDS: ETHYL ALCOHOL 62% ANTISEPTIC NASAL INHALANT 0.6 ML AMPUL NASAL SCH ×2 (08:16→21:07)
[2021-05-28 09:30] VITALS: BP 136/66
[2021-05-28 12:56] LABS: GLUCOMETER DEV NAME(LOC) 2WR.2B; GLUCOSE,POINT OF CARE 124 MG/DL (70-110)
[2021-05-28 16:32] VITALS: BP 125/67
[2021-05-28] MEDS: DOCUSATE SODIUM 283 MG/5 ML MINI-ENEMA PR SCH (18:00)
[2021-05-28] MEDS: ACETAMINOPHEN 325 MG TABLET PO PRN (18:14)
[2021-05-28 19:55] LABS: GLUCOMETER DEV NAME(LOC) 2WR.2B; GLUCOSE,POINT OF CARE 109 MG/DL (70-110)
[2021-05-28] MEDS: SENNA 187 MG TABLET PO SCH (21:00)
[2021-05-28] MEDS: SIMVASTATIN 40 MG TABLET PO SCH (21:05)
[2021-05-28 21:55] LABS: GLUCOMETER DEV NAME(LOC) 2WR.2B; GLUCOSE,POINT OF CARE 135 MG/DL (70-110)
[2021-05-29 02:52] VITALS: BP 130/70
[2021-05-29 04:31] LABS: GLUCOMETER DEV NAME(LOC) 2WR.1C; GLUCOSE,POINT OF CARE 99 MG/DL (70-110)
[2021-05-29 06:38] LABS: GLUCOMETER DEV NAME(LOC) 2WR.1C; GLUCOSE,POINT OF CARE 114 MG/DL (70-110)
[2021-05-29] MEDS: GEMFIBROZIL 600 MG TABLET PO SCH ×2 (07:00→17:41)
[2021-05-29] MEDS: MetFORMIN HCL 500 MG TABLET PO SCH ×2 (07:01→17:40)
[2021-05-29] MEDS: ALLOPURINOL 100 MG TABLET PO SCH ×2 (08:13→20:20)
[2021-05-29] MEDS: ESCITALOPRAM OXALATE 10 MG TABLET PO SCH (08:13)
[2021-05-29] MEDS: FLUTICASONE PROPIONATE 50 MCG/SPRAY 16 GM NASAL SPRAY NASAL SCH (08:13)
[2021-05-29] MEDS: CHOLECALCIFEROL (VIT D3) 2,000 UNITS [50 MCG] TABLET PO SCH (08:13)
[2021-05-29] MEDS: AmLODIPine BESYLATE 10 MG TABLET PO SCH (08:13)
[2021-05-29] MEDS: METOPROLOL TARTRATE 25 MG TABLET PO SCH ×2 (08:13→20:20)
[2021-05-29] MEDS: ASPIRIN 81 MG CHEWABLE TABLET PO SCH (08:13)
[2021-05-29] MEDS: TICAGRELOR 90 MG TABLET PO SCH ×2 (08:14→20:18)
[2021-05-29] MEDS: DOCUSATE SODIUM 100 MG CAPSULE PO SCH ×2 (08:14→20:19)
[2021-05-29] MEDS: PANTOPRAZOLE SODIUM 40 MG DR TABLET PO SCH (08:14)
[2021-05-29] MEDS: HydrALAZINE HCL 25 MG TABLET PO SCH (08:14)
[2021-05-29] MEDS: MONTELUKAST SODIUM 10 MG TABLET PO SCH (08:14)
[2021-05-29] MEDS: ETHYL ALCOHOL 62% ANTISEPTIC NASAL INHALANT 0.6 ML AMPUL NASAL SCH ×2 (08:19→20:18)
[2021-05-29 09:04] VITALS: BP 147/97
[2021-05-29 15:42] LABS: GLUCOMETER DEV NAME(LOC) 2WR.1C; GLUCOSE,POINT OF CARE 116 MG/DL (70-110)
[2021-05-29 16:10] VITALS: BP 129/65
[2021-05-29 18:12] LABS: GLUCOMETER DEV NAME(LOC) 2WR.2B; GLUCOSE,POINT OF CARE 122 MG/DL (70-110)
[2021-05-29] MEDS: DOCUSATE SODIUM 283 MG/5 ML MINI-ENEMA PR SCH (18:18)
[2021-05-29] MEDS: SENNA 187 MG TABLET PO SCH (20:19)
[2021-05-29] MEDS: SIMVASTATIN 40 MG TABLET PO SCH (20:20)
[2021-05-29 22:04] LABS: GLUCOMETER DEV NAME(LOC) 2WR.2B; GLUCOSE,POINT OF CARE 109 MG/DL (70-110)
[2021-05-30 01:00] VITALS: BP 141/96
[2021-05-30] MEDS: GEMFIBROZIL 600 MG TABLET PO SCH ×2 (05:46→19:07)
[2021-05-30 06:08] LABS: GLUCOMETER DEV NAME(LOC) 2WR.2B; GLUCOSE,POINT OF CARE 106 MG/DL (70-110)
[2021-05-30 08:18] VITALS: BP 129/74
[2021-05-30] MEDS: ASPIRIN 81 MG CHEWABLE TABLET PO SCH (08:34)
[2021-05-30] MEDS: ETHYL ALCOHOL 62% ANTISEPTIC NASAL INHALANT 0.6 ML AMPUL NASAL SCH ×2 (08:34→21:05)
[2021-05-30] MEDS: AmLODIPine BESYLATE 10 MG TABLET PO SCH (08:34)
[2021-05-30] MEDS: FLUTICASONE PROPIONATE 50 MCG/SPRAY 16 GM NASAL SPRAY NASAL SCH (08:34)
[2021-05-30] MEDS: TICAGRELOR 90 MG TABLET PO SCH ×2 (08:34→21:04)
[2021-05-30] MEDS: PANTOPRAZOLE SODIUM 40 MG DR TABLET PO SCH (08:35)
[2021-05-30] MEDS: MONTELUKAST SODIUM 10 MG TABLET PO SCH (08:35)
[2021-05-30] MEDS: HydrALAZINE HCL 25 MG TABLET PO SCH (08:35)
[2021-05-30] MEDS: CHOLECALCIFEROL (VIT D3) 2,000 UNITS [50 MCG] TABLET PO SCH (08:35)
[2021-05-30] MEDS: ESCITALOPRAM OXALATE 10 MG TABLET PO SCH (08:35)
[2021-05-30] MEDS: MetFORMIN HCL 500 MG TABLET PO SCH ×2 (08:35→19:07)
[2021-05-30] MEDS: ALLOPURINOL 100 MG TABLET PO SCH ×2 (08:35→21:04)
[2021-05-30] MEDS: METOPROLOL TARTRATE 25 MG TABLET PO SCH ×2 (08:35→21:04)
[2021-05-30] MEDS: DOCUSATE SODIUM 100 MG CAPSULE PO SCH ×2 (09:36→21:04)
[2021-05-30 12:30] LABS: GLUCOMETER DEV NAME(LOC) 2WR.1C; GLUCOSE,POINT OF CARE 139 MG/DL (70-110)
[2021-05-30 16:13] VITALS: BP 121/72
[2021-05-30 18:33] LABS: GLUCOMETER DEV NAME(LOC) 2WR.1C; GLUCOSE,POINT OF CARE 97 MG/DL (70-110)
[2021-05-30] MEDS: DOCUSATE SODIUM 283 MG/5 ML MINI-ENEMA PR SCH (19:07)
[2021-05-30] MEDS: SIMVASTATIN 40 MG TABLET PO SCH (21:04)
[2021-05-30] MEDS: SENNA 187 MG TABLET PO SCH (21:04)
[2021-05-30 21:27] LABS: GLUCOMETER DEV NAME(LOC) 2WR.1C; GLUCOSE,POINT OF CARE 137 MG/DL (70-110)
[2021-05-31 01:30] VITALS: BP 119/74
[2021-05-31] MEDS: GEMFIBROZIL 600 MG TABLET PO SCH ×2 (05:45→16:01)
[2021-05-31 06:04] LABS: GLUCOMETER DEV NAME(LOC) 2WR.2B; GLUCOSE,POINT OF CARE 104 MG/DL (70-110)
[2021-05-31] MEDS: FLUTICASONE PROPIONATE 50 MCG/SPRAY 16 GM NASAL SPRAY NASAL SCH (08:31)
[2021-05-31] MEDS: TICAGRELOR 90 MG TABLET PO SCH ×2 (08:31→20:16)
[2021-05-31] MEDS: ESCITALOPRAM OXALATE 10 MG TABLET PO SCH (08:31)
[2021-05-31] MEDS: CHOLECALCIFEROL (VIT D3) 2,000 UNITS [50 MCG] TABLET PO SCH (08:31)
[2021-05-31] MEDS: HydrALAZINE HCL 25 MG TABLET PO SCH (08:31)
[2021-05-31] MEDS: MONTELUKAST SODIUM 10 MG TABLET PO SCH (08:31)
[2021-05-31] MEDS: PANTOPRAZOLE SODIUM 40 MG DR TABLET PO SCH (08:31)
[2021-05-31] MEDS: ETHYL ALCOHOL 62% ANTISEPTIC NASAL INHALANT 0.6 ML AMPUL NASAL SCH ×2 (08:31→20:16)
[2021-05-31] MEDS: ALLOPURINOL 100 MG TABLET PO SCH ×2 (08:32→20:16)
[2021-05-31] MEDS: METOPROLOL TARTRATE 25 MG TABLET PO SCH ×2 (08:32→20:16)
[2021-05-31] MEDS: ASPIRIN 81 MG CHEWABLE TABLET PO SCH (08:32)
[2021-05-31] MEDS: MetFORMIN HCL 500 MG TABLET PO SCH ×2 (08:32→17:45)
[2021-05-31] MEDS: AmLODIPine BESYLATE 10 MG TABLET PO SCH (08:32)
[2021-05-31] MEDS: DOCUSATE SODIUM 100 MG CAPSULE PO SCH ×2 (08:41→20:22)
[2021-05-31 08:57] VITALS: BP 125/62
[2021-05-31] MEDS: ACETAMINOPHEN 325 MG TABLET PO PRN (10:17)
[2021-05-31 12:14] LABS: GLUCOMETER DEV NAME(LOC) 2WR.2B; GLUCOSE,POINT OF CARE 113 MG/DL (70-110)
[2021-05-31 15:45] VITALS: BP 107/72
[2021-05-31 18:23] LABS: GLUCOMETER DEV NAME(LOC) 2WR.2B; GLUCOSE,POINT OF CARE 126 MG/DL (70-110)
[2021-05-31] MEDS: SIMVASTATIN 40 MG TABLET PO SCH (20:16)
[2021-05-31] MEDS: SENNA 187 MG TABLET PO SCH (20:22)
[2021-05-31 20:25] VITALS: BP 118/62
[2021-05-31 20:45] LABS: GLUCOMETER DEV NAME(LOC) 2WR.2B; GLUCOSE,POINT OF CARE 128 MG/DL (70-110)
[2021-06-01] VITALS: BP 111/59
[2021-06-01 05:55] LABS: GLUCOMETER DEV NAME(LOC) 2WR.1C; GLUCOSE,POINT OF CARE 145 MG/DL (70-110)
[2021-06-01] MEDS: GEMFIBROZIL 600 MG TABLET PO SCH ×2 (06:08→16:51)
[2021-06-01] MEDS: FLUTICASONE PROPIONATE 50 MCG/SPRAY 16 GM NASAL SPRAY NASAL SCH (08:22)
[2021-06-01] MEDS: ASPIRIN 81 MG CHEWABLE TABLET PO SCH (08:22)
[2021-06-01] MEDS: CHOLECALCIFEROL (VIT D3) 2,000 UNITS [50 MCG] TABLET PO SCH (08:23)
[2021-06-01] MEDS: HydrALAZINE HCL 25 MG TABLET PO SCH (08:24)
[2021-06-01] MEDS: AmLODIPine BESYLATE 10 MG TABLET PO SCH (08:25)
[2021-06-01] MEDS: ETHYL ALCOHOL 62% ANTISEPTIC NASAL INHALANT 0.6 ML AMPUL NASAL SCH ×2 (08:25→20:43)
[2021-06-01] MEDS: MetFORMIN HCL 500 MG TABLET PO SCH ×2 (08:25→16:51)
[2021-06-01] MEDS: METOPROLOL TARTRATE 25 MG TABLET PO SCH ×2 (08:25→20:43)
[2021-06-01] MEDS: PANTOPRAZOLE SODIUM 40 MG DR TABLET PO SCH (08:25)
[2021-06-01] MEDS: ALLOPURINOL 100 MG TABLET PO SCH ×2 (08:26→20:43)
[2021-06-01] MEDS: LORATADINE 10 MG TABLET PO SCH (08:26)
[2021-06-01] MEDS: TICAGRELOR 90 MG TABLET PO SCH ×2 (08:26→20:43)
[2021-06-01] MEDS: ESCITALOPRAM OXALATE 10 MG TABLET PO SCH (08:27)
[2021-06-01] MEDS: MONTELUKAST SODIUM 10 MG TABLET PO SCH (08:27)
[2021-06-01] MEDS: DOCUSATE SODIUM 100 MG CAPSULE PO SCH ×2 (08:40→20:45)
[2021-06-01 09:27] VITALS: BP 124/70
[2021-06-01 14:34] LABS: GLUCOMETER DEV NAME(LOC) 2WR.2B; GLUCOSE,POINT OF CARE 155 MG/DL (70-110)
[2021-06-01 16:22] VITALS: BP 128/81
[2021-06-01 16:40] LABS: GLUCOMETER DEV NAME(LOC) 2WR.1C; GLUCOSE,POINT OF CARE 116 MG/DL (70-110)
[2021-06-01 19:32] LABS: GLUCOMETER DEV NAME(LOC) 2WR.2B; GLUCOSE,POINT OF CARE 109 MG/DL (70-110)
[2021-06-01] MEDS: SIMVASTATIN 40 MG TABLET PO SCH (20:43)
[2021-06-01] MEDS: SENNA 187 MG TABLET PO SCH (20:55)
[2021-06-01 21:20] VITALS: BP 114/57
[2021-06-01 21:31] LABS: GLUCOMETER DEV NAME(LOC) 2WR.1C; GLUCOSE,POINT OF CARE 130 MG/DL (70-110)
[2021-06-02 01:42] VITALS: BP 138/77
[2021-06-02 05:55] LABS: GLUCOMETER DEV NAME(LOC) 2WR.2B; GLUCOSE,POINT OF CARE 110 MG/DL (70-110)
[2021-06-02] MEDS: GEMFIBROZIL 600 MG TABLET PO SCH ×2 (06:15→16:06)
[2021-06-02 06:37] LABS: HEMOGLOBIN A1C 6.1 % (3.8-5.6)
[2021-06-02 06:49] LABS: MAGNESIUM 1.3 mg/dL (1.80-2.40); PHOSPHORUS 3.9 mg/dL (2.5-4.9)
[2021-06-02] MEDS: MetFORMIN HCL 500 MG TABLET PO SCH ×2 (07:49→17:37)
[2021-06-02] MEDS: ASPIRIN 81 MG CHEWABLE TABLET PO SCH (07:50)
[2021-06-02] MEDS: ETHYL ALCOHOL 62% ANTISEPTIC NASAL INHALANT 0.6 ML AMPUL NASAL SCH ×2 (07:50→20:57)
[2021-06-02] MEDS: FLUTICASONE PROPIONATE 50 MCG/SPRAY 16 GM NASAL SPRAY NASAL SCH (07:50)
[2021-06-02] MEDS: MULTIVITAMINS WITH MINERALS, THERAPEUTIC TABLET PO SCH (07:51)
[2021-06-02] MEDS: TICAGRELOR 90 MG TABLET PO SCH ×2 (07:51→20:57)
[2021-06-02] MEDS: CHOLECALCIFEROL (VIT D3) 2,000 UNITS [50 MCG] TABLET PO SCH (07:51)
[2021-06-02] MEDS: PANTOPRAZOLE SODIUM 40 MG DR TABLET PO SCH (07:51)
[2021-06-02] MEDS: DOCUSATE SODIUM 100 MG CAPSULE PO SCH ×2 (07:51→20:58)
[2021-06-02] MEDS: METOPROLOL TARTRATE 25 MG TABLET PO SCH ×2 (07:52→20:56)
[2021-06-02] MEDS: ALLOPURINOL 100 MG TABLET PO SCH ×2 (07:52→20:56)
[2021-06-02] MEDS: HydrALAZINE HCL 25 MG TABLET PO SCH (07:52)
[2021-06-02] MEDS: MONTELUKAST SODIUM 10 MG TABLET PO SCH (07:52)
[2021-06-02] MEDS: ESCITALOPRAM OXALATE 10 MG TABLET PO SCH (07:53)
[2021-06-02] MEDS: LORATADINE 10 MG TABLET PO SCH (07:53)
[2021-06-02] MEDS: AmLODIPine BESYLATE 10 MG TABLET PO SCH (08:16)
[2021-06-02 09:05] VITALS: BP 132/89
[2021-06-02] MEDS: GABAPENTIN 100 MG CAPSULE PO SCH ×2 (10:23→20:56)
[2021-06-02 11:46] LABS: GLUCOMETER DEV NAME(LOC) 2WR.2B; GLUCOSE,POINT OF CARE 116 MG/DL (70-110)
[2021-06-02 16:34] VITALS: BP 129/70
[2021-06-02] MEDS: ACETAMINOPHEN 325 MG TABLET PO PRN (18:22)
[2021-06-02 19:57] LABS: GLUCOMETER DEV NAME(LOC) 2WR.2B; GLUCOSE,POINT OF CARE 137 MG/DL (70-110)
[2021-06-02 20:15] VITALS: BP 110/72
[2021-06-02] MEDS: SIMVASTATIN 40 MG TABLET PO SCH (20:56)
[2021-06-02] MEDS: SENNA 187 MG TABLET PO SCH (20:56)
[2021-06-03 00:42] VITALS: BP 114/63
[2021-06-03 03:10] LABS: GLUCOMETER DEV NAME(LOC) 2WR.2B; GLUCOSE,POINT OF CARE 123 MG/DL (70-110)
[2021-06-03 06:01] LABS: GLUCOMETER DEV NAME(LOC) 2WR.2B; GLUCOSE,POINT OF CARE 96 MG/DL (70-110)
[2021-06-03] MEDS: GEMFIBROZIL 600 MG TABLET PO SCH ×2 (06:03→16:36)
[2021-06-03] MEDS: MULTIVITAMINS WITH MINERALS, THERAPEUTIC TABLET PO SCH (08:10)
[2021-06-03] MEDS: ASPIRIN 81 MG CHEWABLE TABLET PO SCH (08:10)
[2021-06-03] MEDS: ESCITALOPRAM OXALATE 10 MG TABLET PO SCH (08:10)
[2021-06-03] MEDS: CHOLECALCIFEROL (VIT D3) 2,000 UNITS [50 MCG] TABLET PO SCH (08:10)
[2021-06-03] MEDS: MONTELUKAST SODIUM 10 MG TABLET PO SCH (08:10)
[2021-06-03] MEDS: FLUTICASONE PROPIONATE 50 MCG/SPRAY 16 GM NASAL SPRAY NASAL SCH (08:10)
[2021-06-03] MEDS: DOCUSATE SODIUM 100 MG CAPSULE PO SCH ×2 (08:10→20:47)
[2021-06-03] MEDS: TICAGRELOR 90 MG TABLET PO SCH ×2 (08:10→20:46)
[2021-06-03] MEDS: METOPROLOL TARTRATE 25 MG TABLET PO SCH ×2 (08:11→20:46)
[2021-06-03] MEDS: LORATADINE 10 MG TABLET PO SCH (08:11)
[2021-06-03] MEDS: ALLOPURINOL 100 MG TABLET PO SCH ×2 (08:11→20:46)
[2021-06-03] MEDS: ETHYL ALCOHOL 62% ANTISEPTIC NASAL INHALANT 0.6 ML AMPUL NASAL SCH ×2 (08:11→21:28)
[2021-06-03] MEDS: MAGNESIUM OXIDE 400 MG TABLET PO SCH (08:11)
[2021-06-03] MEDS: MetFORMIN HCL 500 MG TABLET PO SCH ×2 (08:11→17:49)
[2021-06-03] MEDS: GABAPENTIN 100 MG CAPSULE PO SCH ×2 (08:12→20:45)
[2021-06-03] MEDS: PANTOPRAZOLE SODIUM 40 MG DR TABLET PO SCH (08:12)
[2021-06-03] MEDS: HydrALAZINE HCL 25 MG TABLET PO SCH (08:13)
[2021-06-03] MEDS: AmLODIPine BESYLATE 10 MG TABLET PO SCH (08:13)
[2021-06-03 10:38] VITALS: BP 149/63
[2021-06-03 14:08] LABS: GLUCOMETER DEV NAME(LOC) 2WR.1C; GLUCOSE,POINT OF CARE 98 MG/DL (70-110)
[2021-06-03 16:46] VITALS: BP 110/57
[2021-06-03 20:10] LABS: GLUCOMETER DEV NAME(LOC) 2WR.2B; GLUCOSE,POINT OF CARE 116 MG/DL (70-110)
[2021-06-03 20:30] VITALS: BP 115/72
[2021-06-03] MEDS: SIMVASTATIN 40 MG TABLET PO SCH (20:45)
[2021-06-03] MEDS ORDERED: GuaiFENesin/D-METHORPHAN/PHENYLEPH 5 ML LIQUID ORAL.SYG PO PRN (20:45)
[2021-06-03] MEDS: SENNA 187 MG TABLET PO SCH (20:47)
[2021-06-03] MEDS: INSULIN LISPRO 100 UNITS/ML SQ PRN (20:59)
[2021-06-03 22:33] LABS: GLUCOMETER DEV NAME(LOC) 2WR.2B; GLUCOSE,POINT OF CARE 153 MG/DL (70-110)
[2021-06-03 23:31] VITALS: BP 135/68
[2021-06-03] MEDS: ACETAMINOPHEN 325 MG TABLET PO PRN (23:31)
[2021-06-04 05:56] LABS: GLUCOMETER DEV NAME(LOC) 2WR.2B; GLUCOSE,POINT OF CARE 120 MG/DL (70-110)
[2021-06-04] MEDS: GEMFIBROZIL 600 MG TABLET PO SCH ×2 (05:57→16:02)
[2021-06-04] MEDS: MetFORMIN HCL 500 MG TABLET PO SCH ×2 (08:00→17:25)
[2021-06-04 08:01] VITALS: BP 154/88
[2021-06-04] MEDS: ACETAMINOPHEN 325 MG TABLET PO PRN (08:01)
[2021-06-04] MEDS: ETHYL ALCOHOL 62% ANTISEPTIC NASAL INHALANT 0.6 ML AMPUL NASAL SCH ×2 (09:26→20:50)
[2021-06-04] MEDS: FLUTICASONE PROPIONATE 50 MCG/SPRAY 16 GM NASAL SPRAY NASAL SCH (09:26)
[2021-06-04] MEDS: ASPIRIN 81 MG CHEWABLE TABLET PO SCH (09:28)
[2021-06-04] MEDS: HydrALAZINE HCL 25 MG TABLET PO SCH (09:28)
[2021-06-04] MEDS: DOCUSATE SODIUM 100 MG CAPSULE PO SCH ×2 (09:29→20:48)
[2021-06-04] MEDS: LORATADINE 10 MG TABLET PO SCH (09:29)
[2021-06-04] MEDS: TICAGRELOR 90 MG TABLET PO SCH ×2 (09:29→20:47)
[2021-06-04] MEDS: METOPROLOL TARTRATE 25 MG TABLET PO SCH ×2 (09:30→20:47)
[2021-06-04] MEDS: ESCITALOPRAM OXALATE 10 MG TABLET PO SCH (09:30)
[2021-06-04] MEDS: AmLODIPine BESYLATE 10 MG TABLET PO SCH (09:31)
[2021-06-04] MEDS: MAGNESIUM OXIDE 400 MG TABLET PO SCH (09:31)
[2021-06-04] MEDS: GABAPENTIN 100 MG CAPSULE PO SCH ×2 (09:31→20:48)
[2021-06-04] MEDS: MONTELUKAST SODIUM 10 MG TABLET PO SCH (09:32)
[2021-06-04] MEDS: PANTOPRAZOLE SODIUM 40 MG DR TABLET PO SCH (09:32)
[2021-06-04] MEDS: MULTIVITAMINS WITH MINERALS, THERAPEUTIC TABLET PO SCH (09:32)
[2021-06-04] MEDS: ALLOPURINOL 100 MG TABLET PO SCH ×2 (09:33→20:47)
[2021-06-04] MEDS: CHOLECALCIFEROL (VIT D3) 2,000 UNITS [50 MCG] TABLET PO SCH (09:34)
[2021-06-04 13:24] LABS: GLUCOMETER DEV NAME(LOC) 2WR.2B; GLUCOSE,POINT OF CARE 104 MG/DL (70-110)
[2021-06-04 16:11] VITALS: BP 125/61
[2021-06-04] MEDS: INSULIN LISPRO 100 UNITS/ML SQ PRN (17:27)
[2021-06-04 17:33] LABS: GLUCOMETER DEV NAME(LOC) 2WR.2B; GLUCOSE,POINT OF CARE 163 MG/DL (70-110)
[2021-06-04] MEDS: SENNA 187 MG TABLET PO SCH (20:47)
[2021-06-04] MEDS: SIMVASTATIN 40 MG TABLET PO SCH (20:48)
[2021-06-04 21:49] LABS: GLUCOMETER DEV NAME(LOC) 2WR.1C; GLUCOSE,POINT OF CARE 129 MG/DL (70-110)
[2021-06-05 02:21] VITALS: BP 141/83
[2021-06-05] MEDS: GEMFIBROZIL 600 MG TABLET PO SCH ×2 (05:43→16:57)
[2021-06-05 05:54] LABS: GLUCOMETER DEV NAME(LOC) 2WR.2B; GLUCOSE,POINT OF CARE 119 MG/DL (70-110)
[2021-06-05 08:10] VITALS: BP 142/66
[2021-06-05] MEDS: PANTOPRAZOLE SODIUM 40 MG DR TABLET PO SCH (08:19)
[2021-06-05] MEDS: AmLODIPine BESYLATE 10 MG TABLET PO SCH (08:19)
[2021-06-05] MEDS: MONTELUKAST SODIUM 10 MG TABLET PO SCH (08:20)
[2021-06-05] MEDS: ASPIRIN 81 MG CHEWABLE TABLET PO SCH (08:20)
[2021-06-05] MEDS: METOPROLOL TARTRATE 25 MG TABLET PO SCH ×2 (08:20→20:57)
[2021-06-05] MEDS: MAGNESIUM OXIDE 400 MG TABLET PO SCH (08:20)
[2021-06-05] MEDS: DOCUSATE SODIUM 100 MG CAPSULE PO SCH ×2 (08:20→20:57)
[2021-06-05] MEDS: CHOLECALCIFEROL (VIT D3) 2,000 UNITS [50 MCG] TABLET PO SCH (08:20)
[2021-06-05] MEDS: MULTIVITAMINS WITH MINERALS, THERAPEUTIC TABLET PO SCH (08:20)
[2021-06-05] MEDS: ALLOPURINOL 100 MG TABLET PO SCH ×2 (08:21→20:57)
[2021-06-05] MEDS: GABAPENTIN 100 MG CAPSULE PO SCH ×2 (08:21→20:56)
[2021-06-05] MEDS: ESCITALOPRAM OXALATE 10 MG TABLET PO SCH (08:21)
[2021-06-05] MEDS: LORATADINE 10 MG TABLET PO SCH (08:21)
[2021-06-05] MEDS: HydrALAZINE HCL 25 MG TABLET PO SCH (08:21)
[2021-06-05] MEDS: MetFORMIN HCL 500 MG TABLET PO SCH ×2 (08:21→17:35)
[2021-06-05] MEDS: FLUTICASONE PROPIONATE 50 MCG/SPRAY 16 GM NASAL SPRAY NASAL SCH (08:21)
[2021-06-05] MEDS: TICAGRELOR 90 MG TABLET PO SCH ×2 (08:21→20:56)
[2021-06-05] MEDS: ETHYL ALCOHOL 62% ANTISEPTIC NASAL INHALANT 0.6 ML AMPUL NASAL SCH ×2 (08:22→20:58)
[2021-06-05 12:55] LABS: GLUCOMETER DEV NAME(LOC) 2WR.2B; GLUCOSE,POINT OF CARE 123 MG/DL (70-110)
[2021-06-05 16:05] VITALS: BP 134/78
[2021-06-05 20:56] VITALS: BP 131/81
[2021-06-05] MEDS: ACETAMINOPHEN 325 MG TABLET PO PRN (20:56)
[2021-06-05] MEDS: SIMVASTATIN 40 MG TABLET PO SCH (20:56)
[2021-06-05] MEDS: SENNA 187 MG TABLET PO SCH (20:56)
[2021-06-05] MEDS: INSULIN LISPRO 100 UNITS/ML SQ PRN (20:57)
[2021-06-06 05:20] VITALS: BP 151/74
[2021-06-06 05:21] LABS: GLUCOMETER DEV NAME(LOC) 2WR.1C; GLUCOSE,POINT OF CARE 141 MG/DL (70-110)
[2021-06-06 05:21] LABS: GLUCOMETER DEV NAME(LOC) 2WR.1C; GLUCOSE,POINT OF CARE 117 MG/DL (70-110)
[2021-06-06] MEDS: GEMFIBROZIL 600 MG TABLET PO SCH ×2 (05:45→16:21)
[2021-06-06 06:06] LABS: GLUCOMETER DEV NAME(LOC) 2WR.2B; GLUCOSE,POINT OF CARE 98 MG/DL (70-110)
[2021-06-06] MEDS: LORATADINE 10 MG TABLET PO SCH (07:42)
[2021-06-06] MEDS: CHOLECALCIFEROL (VIT D3) 2,000 UNITS [50 MCG] TABLET PO SCH (07:42)
[2021-06-06] MEDS: PANTOPRAZOLE SODIUM 40 MG DR TABLET PO SCH (07:42)
[2021-06-06] MEDS: FLUTICASONE PROPIONATE 50 MCG/SPRAY 16 GM NASAL SPRAY NASAL SCH (07:42)
[2021-06-06] MEDS: ETHYL ALCOHOL 62% ANTISEPTIC NASAL INHALANT 0.6 ML AMPUL NASAL SCH ×2 (07:42→20:54)
[2021-06-06] MEDS: ALLOPURINOL 100 MG TABLET PO SCH ×2 (07:42→20:54)
[2021-06-06] MEDS: AmLODIPine BESYLATE 10 MG TABLET PO SCH (07:42)
[2021-06-06] MEDS: MONTELUKAST SODIUM 10 MG TABLET PO SCH (07:42)
[2021-06-06] MEDS: MAGNESIUM OXIDE 400 MG TABLET PO SCH (07:42)
[2021-06-06] MEDS: DOCUSATE SODIUM 100 MG CAPSULE PO SCH ×2 (07:42→20:54)
[2021-06-06] MEDS: TICAGRELOR 90 MG TABLET PO SCH ×2 (07:43→20:54)
[2021-06-06] MEDS: ASPIRIN 81 MG CHEWABLE TABLET PO SCH (07:43)
[2021-06-06] MEDS: METOPROLOL TARTRATE 25 MG TABLET PO SCH ×2 (07:43→20:54)
[2021-06-06] MEDS: MULTIVITAMINS WITH MINERALS, THERAPEUTIC TABLET PO SCH (07:43)
[2021-06-06] MEDS: MetFORMIN HCL 500 MG TABLET PO SCH ×2 (07:43→17:41)
[2021-06-06] MEDS: HydrALAZINE HCL 25 MG TABLET PO SCH (07:43)
[2021-06-06] MEDS: GABAPENTIN 100 MG CAPSULE PO SCH ×2 (07:43→20:54)
[2021-06-06] MEDS: ESCITALOPRAM OXALATE 10 MG TABLET PO SCH (07:43)
[2021-06-06 08:45] VITALS: BP 149/80
[2021-06-06] MEDS: ACETAMINOPHEN 325 MG TABLET PO PRN ×2 (10:04→17:41)
[2021-06-06] MEDS: INSULIN LISPRO 100 UNITS/ML SQ PRN ×3 (12:43→20:53)
[2021-06-06 12:48] LABS: GLUCOMETER DEV NAME(LOC) 2WR.1C; GLUCOSE,POINT OF CARE 150 MG/DL (70-110)
[2021-06-06 16:00] VITALS: BP 118/64
[2021-06-06 20:13] LABS: GLUCOMETER DEV NAME(LOC) 2WR.1C; GLUCOSE,POINT OF CARE 154 MG/DL (70-110)
[2021-06-06 20:20] VITALS: BP 132/67
[2021-06-06] MEDS: SENNA 187 MG TABLET PO SCH (20:53)
[2021-06-06] MEDS: SIMVASTATIN 40 MG TABLET PO SCH (20:54)
[2021-06-06 21:58] LABS: GLUCOMETER DEV NAME(LOC) 2WR.2B; GLUCOSE,POINT OF CARE 158 MG/DL (70-110)
[2021-06-07 02:24] VITALS: BP 123/60
[2021-06-07 06:01] LABS: GLUCOMETER DEV NAME(LOC) 2WR.2B; GLUCOSE,POINT OF CARE 122 MG/DL (70-110)
[2021-06-07] MEDS: GEMFIBROZIL 600 MG TABLET PO SCH ×2 (06:24→17:26)
[2021-06-07 07:07] VITALS: BP 123/77
[2021-06-07] MEDS: ETHYL ALCOHOL 62% ANTISEPTIC NASAL INHALANT 0.6 ML AMPUL NASAL SCH ×2 (08:26→21:11)
[2021-06-07] MEDS: METOPROLOL TARTRATE 25 MG TABLET PO SCH ×2 (08:26→21:12)
[2021-06-07] MEDS: ASPIRIN 81 MG CHEWABLE TABLET PO SCH (08:26)
[2021-06-07] MEDS: MULTIVITAMINS WITH MINERALS, THERAPEUTIC TABLET PO SCH (08:27)
[2021-06-07] MEDS: MONTELUKAST SODIUM 10 MG TABLET PO SCH (08:27)
[2021-06-07] MEDS: TICAGRELOR 90 MG TABLET PO SCH ×2 (08:27→21:11)
[2021-06-07] MEDS: ALLOPURINOL 100 MG TABLET PO SCH ×2 (08:27→21:12)
[2021-06-07] MEDS: LORATADINE 10 MG TABLET PO SCH (08:27)
[2021-06-07] MEDS: PANTOPRAZOLE SODIUM 40 MG DR TABLET PO SCH (08:27)
[2021-06-07] MEDS: CHOLECALCIFEROL (VIT D3) 2,000 UNITS [50 MCG] TABLET PO SCH (08:27)
[2021-06-07] MEDS: DOCUSATE SODIUM 100 MG CAPSULE PO SCH ×2 (08:27→21:12)
[2021-06-07] MEDS: MAGNESIUM OXIDE 400 MG TABLET PO SCH ×2 (08:27→21:11)
[2021-06-07] MEDS: ESCITALOPRAM OXALATE 10 MG TABLET PO SCH (08:28)
[2021-06-07] MEDS: GABAPENTIN 100 MG CAPSULE PO SCH ×2 (08:28→21:12)
[2021-06-07] MEDS: MetFORMIN HCL 500 MG TABLET PO SCH ×2 (08:28→17:26)
[2021-06-07] MEDS: AmLODIPine BESYLATE 10 MG TABLET PO SCH (08:28)
[2021-06-07] MEDS: FLUTICASONE PROPIONATE 50 MCG/SPRAY 16 GM NASAL SPRAY NASAL SCH (08:28)
[2021-06-07] MEDS: HydrALAZINE HCL 25 MG TABLET PO SCH (08:28)
[2021-06-07 13:31] LABS: GLUCOMETER DEV NAME(LOC) 2WR.2B; GLUCOSE,POINT OF CARE 139 MG/DL (70-110)
[2021-06-07 16:00] VITALS: BP 115/67
[2021-06-07] MEDS: INSULIN LISPRO 100 UNITS/ML SQ PRN (17:38)
[2021-06-07 17:47] LABS: GLUCOMETER DEV NAME(LOC) 2WR.2B; GLUCOSE,POINT OF CARE 168 MG/DL (70-110)
[2021-06-07] MEDS: ACETAMINOPHEN 325 MG TABLET PO PRN (18:56)
[2021-06-07 21:07] VITALS: BP 117/78
[2021-06-07] MEDS: SENNA 187 MG TABLET PO SCH (21:11)
[2021-06-07] MEDS: SIMVASTATIN 40 MG TABLET PO SCH (21:11)
[2021-06-07 22:17] LABS: GLUCOMETER DEV NAME(LOC) 2WR.1C; GLUCOSE,POINT OF CARE 114 MG/DL (70-110)
[2021-06-08 05:30] VITALS: BP 154/74
[2021-06-08] MEDS: GEMFIBROZIL 600 MG TABLET PO SCH ×2 (05:33→17:32)
[2021-06-08 05:41] LABS: GLUCOMETER DEV NAME(LOC) 2WR.2B; GLUCOSE,POINT OF CARE 104 MG/DL (70-110)
[2021-06-08] MEDS: FLUTICASONE PROPIONATE 50 MCG/SPRAY 16 GM NASAL SPRAY NASAL SCH (08:08)
[2021-06-08] MEDS: PANTOPRAZOLE SODIUM 40 MG DR TABLET PO SCH (08:09)
[2021-06-08] MEDS: MONTELUKAST SODIUM 10 MG TABLET PO SCH (08:09)
[2021-06-08] MEDS: ETHYL ALCOHOL 62% ANTISEPTIC NASAL INHALANT 0.6 ML AMPUL NASAL SCH ×2 (08:09→20:50)
[2021-06-08] MEDS: TICAGRELOR 90 MG TABLET PO SCH ×2 (08:09→20:49)
[2021-06-08] MEDS: AmLODIPine BESYLATE 10 MG TABLET PO SCH (08:09)
[2021-06-08] MEDS: ESCITALOPRAM OXALATE 10 MG TABLET PO SCH (08:09)
[2021-06-08] MEDS: CHOLECALCIFEROL (VIT D3) 2,000 UNITS [50 MCG] TABLET PO SCH (08:09)
[2021-06-08] MEDS: MULTIVITAMINS WITH MINERALS, THERAPEUTIC TABLET PO SCH (08:10)
[2021-06-08] MEDS: DOCUSATE SODIUM 100 MG CAPSULE PO SCH ×2 (08:10→20:49)
[2021-06-08] MEDS: ASPIRIN 81 MG CHEWABLE TABLET PO SCH (08:10)
[2021-06-08] MEDS: HydrALAZINE HCL 25 MG TABLET PO SCH (08:10)
[2021-06-08] MEDS: LORATADINE 10 MG TABLET PO SCH (08:10)
[2021-06-08] MEDS: METOPROLOL TARTRATE 25 MG TABLET PO SCH ×2 (08:11→20:49)
[2021-06-08] MEDS: MetFORMIN HCL 500 MG TABLET PO SCH ×2 (08:11→17:32)
[2021-06-08] MEDS: MAGNESIUM OXIDE 400 MG TABLET PO SCH ×2 (08:11→20:49)
[2021-06-08] MEDS: ALLOPURINOL 100 MG TABLET PO SCH ×2 (08:11→20:49)
[2021-06-08] MEDS: GABAPENTIN 100 MG CAPSULE PO SCH ×2 (08:11→20:49)
[2021-06-08 09:20] VITALS: BP 136/87
[2021-06-08] MEDS: ACETAMINOPHEN 325 MG TABLET PO PRN ×2 (09:20→21:59)
[2021-06-08 14:44] LABS: GLUCOMETER DEV NAME(LOC) 2WR.1C; GLUCOSE,POINT OF CARE 108 MG/DL (70-110)
[2021-06-08 17:00] VITALS: BP 111/69
[2021-06-08] MEDS: INSULIN LISPRO 100 UNITS/ML SQ PRN ×2 (17:37→20:53)
[2021-06-08 18:52] LABS: GLUCOMETER DEV NAME(LOC) 2WR.1C; GLUCOSE,POINT OF CARE 150 MG/DL (70-110)
[2021-06-08 20:46] VITALS: BP 132/78
[2021-06-08] MEDS: SENNA 187 MG TABLET PO SCH (20:49)
[2021-06-08] MEDS: SIMVASTATIN 40 MG TABLET PO SCH (20:50)
[2021-06-08 21:32] LABS: GLUCOMETER DEV NAME(LOC) 2WR.2B; GLUCOSE,POINT OF CARE 152 MG/DL (70-110)
[2021-06-08] MEDS ORDERED: GABA-1216 PO (22:13)
[2021-06-08] MEDS ORDERED: LORA10TA7 PO (22:14)
[2021-06-08] MEDS ORDERED: MULT-1239 PO (22:15)
[2021-06-08] MEDS ORDERED: INSU100V SQ (22:17)
[2021-06-09 00:11] VITALS: BP 129/74
[2021-06-09] MEDS: GEMFIBROZIL 600 MG TABLET PO SCH (05:51)
[2021-06-09 06:12] LABS: GLUCOMETER DEV NAME(LOC) 2WR.2B; GLUCOSE,POINT OF CARE 105 MG/DL (70-110)
[2021-06-09 08:15] VITALS: BP 130/82
[2021-06-09] MEDS: FLUTICASONE PROPIONATE 50 MCG/SPRAY 16 GM NASAL SPRAY NASAL SCH (08:31)
[2021-06-09] MEDS: MAGNESIUM OXIDE 400 MG TABLET PO SCH (08:31)
[2021-06-09] MEDS: ESCITALOPRAM OXALATE 10 MG TABLET PO SCH (08:31)
[2021-06-09] MEDS: MetFORMIN HCL 500 MG TABLET PO SCH (08:31)
[2021-06-09] MEDS: METOPROLOL TARTRATE 25 MG TABLET PO SCH (08:31)
[2021-06-09] MEDS: LORATADINE 10 MG TABLET PO SCH (08:31)
[2021-06-09] MEDS: CHOLECALCIFEROL (VIT D3) 2,000 UNITS [50 MCG] TABLET PO SCH (08:31)
[2021-06-09] MEDS: MONTELUKAST SODIUM 10 MG TABLET PO SCH (08:31)
[2021-06-09] MEDS: GABAPENTIN 100 MG CAPSULE PO SCH (08:31)
[2021-06-09] MEDS: ALLOPURINOL 100 MG TABLET PO SCH (08:32)
[2021-06-09] MEDS: HydrALAZINE HCL 25 MG TABLET PO SCH (08:32)
[2021-06-09] MEDS: AmLODIPine BESYLATE 10 MG TABLET PO SCH (08:32)
[2021-06-09] MEDS: TICAGRELOR 90 MG TABLET PO SCH (08:32)
[2021-06-09] MEDS: ASPIRIN 81 MG CHEWABLE TABLET PO SCH (08:32)
[2021-06-09] MEDS: PANTOPRAZOLE SODIUM 40 MG DR TABLET PO SCH (08:32)
[2021-06-09] MEDS: DOCUSATE SODIUM 100 MG CAPSULE PO SCH (08:32)
[2021-06-09] MEDS: MULTIVITAMINS WITH MINERALS, THERAPEUTIC TABLET PO SCH (08:32)
[2021-06-09] MEDS: ETHYL ALCOHOL 62% ANTISEPTIC NASAL INHALANT 0.6 ML AMPUL NASAL SCH (08:33)
[2021-06-09] MEDS ORDERED: METF-960 PO (11:36)
[2021-06-09 19:08] LABS: GLUCOMETER DEV NAME(LOC) 2WR.2B; GLUCOSE,POINT OF CARE 106 MG/DL (70-110)
== END 2021-06-09 12:45 | disposition home health service (06) | DRG 56 ==
LOC: 2WR 16:25
PROVIDERS: ADMIT Physical Medicine & Rehabilitation; ATTEND Physical Medicine & Rehabilitation
DX: I69.354 Hemiplegia and hemiparesis following cerebral infarction affecting left non-dominant side (principal); I63.9 Cerebral infarction, unspecified; E44.0 Moderate protein-calorie malnutrition; K59.2 Neurogenic bowel, not elsewhere classified; R41.4 Neurologic neglect syndrome; R13.10 Dysphagia, unspecified; R47.1 Dysarthria and anarthria; E78.5 Hyperlipidemia, unspecified; J44.9 Chronic obstructive pulmonary disease, unspecified; I10 Essential (primary) hypertension; E11.9 Type 2 diabetes mellitus without complications; I25.10 Atherosclerotic heart disease of native coronary artery without angina pectoris; F41.9 Anxiety disorder, unspecified; E83.42 Hypomagnesemia; E86.0 Dehydration; J45.909 Unspecified asthma, uncomplicated; J84.10 Pulmonary fibrosis, unspecified; K21.9 Gastro-esophageal reflux disease without esophagitis; F32.9 Major depressive disorder, single episode, unspecified; G43.909 Migraine, unspecified, not intractable, without status migrainosus; K59.00 Constipation, unspecified; M10.9 Gout, unspecified; N31.9 Neuromuscular dysfunction of bladder, unspecified; Z79.84 Long term (current) use of oral hypoglycemic drugs; Z87.891 Personal history of nicotine dependence; Z90.710 Acquired absence of both cervix and uterus; Z88.0 Allergy status to penicillin; Z88.5 Allergy status to narcotic agent; Z88.8 Allergy status to other drugs, medicaments and biological substances; Z79.899 Other long term (current) drug therapy; Z98.51 Tubal ligation status; Z68.23 Body mass index [BMI] 23.0-23.9, adult
CPT/HCPCS: 80053; 82962; 83036; 83735; 84100; 85025; 87081; 92507; 92526; 92610; 93970; 97110; 97112; 97116; 97150; 97162; 97166; 97530; 97535; 99366

== ENCOUNTER 2021-07-28 09:30 | Emergency (ER) | payer MEDICARE, OTHER ==
[~2021-07-28] VITALS: Ht 157.5 cm; Wt 70.0 kg
[~2021-07-28 09:30] MED LIST changes: -CIPR-278 PO; -CLOP75TA60 PO; +DOCU-270 PO; -DULA0.75 SQ; -FLUT1BLS3 IH; +GABA-1216 PO; +INSU100V SQ; +LORA10TA7 PO; -MECL-160 PO; +METF-1211 PO; -METF-960 PO; -METR500 PO; +MULT-1239 PO; -POTA20TA83 PO; +TICA90TA PO
[2021-07-28] MEDS ORDERED: SODIUM CHLORIDE 0.9% 100 ML ONE (10:12)
[2021-07-28] MEDS ORDERED: IOHEXOL 350 MG/ML 100 ML VIAL ONE (10:12)
[2021-07-28] MEDS ORDERED: MORPHINE SULFATE 2 MG/ML SYRINGE IVP ONE (10:30)
[2021-07-28] MEDS ORDERED: SODIUM CHLORIDE 0.9% 1,000 ML IV ONE (10:30)
[2021-07-28] MEDS ORDERED: ONDANSETRON HCL 4 MG/2 ML VIAL IVP ONE (10:30)
[2021-07-28 10:31] LABS: BASOPHILS % (AUTO) 1.4 % (0.0-2.0); EOSINOPHILS % (AUTO) 4.4 % (1.0-6.0); HEMOGLOBIN 11.7 g/dL (12.0-16.0); LYMPHOCYTES # (AUTO) 1.7 K/uL (1.0-4.8); LYMPHOCYTES % (AUTO) 27.6 % (22.0-44.0); MEAN CORPUSCULAR HEMOGLOBIN 28.7 pg (26.0-34.0); MEAN CORPUSCULAR HGB CONC 31.7 G/dL (31.0-37.0); MEAN CORPUSCULAR VOLUME 91 fL (80-100); MONOCYTES # (AUTO) 0.4 K/uL (0.1-1.0); MONOCYTES % (AUTO) 6.1 % (2.0-9.0); NEUTROPHILS # (AUTO) 3.7 K/uL (1.8-7.7); NEUTROPHILS % (AUTO) 60.5 % (40.0-70.0); PLATELET COUNT (AUTO) 239 K/uL (150-450); RED BLOOD CELL COUNT(AUTO) 4.08 MIL/uL (4.00-5.20); RED CELL DISTRIBUTION WIDTH 16.1 % (11.5-14.5)
[2021-07-28 10:37] LABS: ANION GAP 7 mmol/L (8-16); CALCIUM, TOTAL 8.9 mg/dL (8.8-10.5); CARBON DIOXIDE 26 mmol/L (22-29); CHLORIDE 106 mmol/L (98-107); CREATININE 0.73 mg/dL (0.60-1.30); GLOMERULAR FILTR. RATE CALC > 60 mL/min (>60); GLUCOSE,RANDOM 97 mg/dL (70-110); POTASSIUM 3.6 mmol/L (3.5-5.1); SODIUM SERUM 139 mmol/L (136-145); UREA NITROGEN, BLOOD 9 mg/dL (7-18)
[2021-07-28 10:43] LABS: ALANINE AMINOTRANSFERASE 18 U/L (12-78); ALBUMIN 3.5 g/dL (3.4-5.0); ALKALINE PHOSPHATASE 56 U/L (46-116); ASPARTATE AMINOTRANSFERASE 24 U/L (15-37); BILIRUBIN,TOTAL 0.7 mg/dL (0.1-1.0); LIPASE 222 U/L (73-393); TOTAL PROTEIN, SERUM 7.1 g/dL (6.4-8.2)
[2021-07-28] MEDS ORDERED: PB/HYOSCY/ATR/SCOP/LIDO/MAALOX 55 ML BOTTLE PO ONE (13:00)
[2021-07-28] MEDS ORDERED: FAMOTIDINE 10 MG/ML 2 ML VIAL IVP ONE (13:00)
[2021-07-28 13:43] VITALS: BP 139/90
[2021-07-28 14:15] LABS: APPEARANCE,URINE CLEAR (CLEAR); BILIRUBIN,URINE NEGATIVE (NEGATIVE); GLUCOSE, URINE (UA) NEGATIVE (NEGATIVE); KETONES,URINE NEGATIVE (NEGATIVE); LEUKOCYTE ESTERASE ,URINE NEGATIVE (NEGATIVE); NITRATE,URINE NEGATIVE (NEGATIVE); OCCULT BLOOD,URINE NEGATIVE (NEGATIVE); PH,URINE 7.5 (5.0-8.0); PROTEIN,URINE NEGATIVE (NEGATIVE); UROBILINOGEN,URINE 0.2 mg/dL (<=1.0)
[2021-07-28 14:34] LABS: BACTERIA,URINE None Seen /HPF (None Seen); RBC,URINE None Seen /HPF (0-2); SQUAMOUS EPITHELIAL CELL,UR None Seen /LPF (None Seen); WBC,URINE None Seen /HPF (0-5)
== END 2021-07-28 14:19 | disposition home or self-care (01) ==
LOC: EMS 09:30
DX: K52.9 Noninfective gastroenteritis and colitis, unspecified (principal); F17.210 Nicotine dependence, cigarettes, uncomplicated; I11.9 Hypertensive heart disease without heart failure; G43.909 Migraine, unspecified, not intractable, without status migrainosus; Z79.899 Other long term (current) drug therapy
CPT/HCPCS: 36415; 74177; 80053; 81001; 83690; 84484; 85025; 93005; 96361; 96374; 96375; 99285; J2270; J2405; J3490; J7030; J7050; Q9967

== ENCOUNTER 2021-09-22 17:16 | Emergency (ER) | payer MEDICARE, OTHER ==
[~2021-09-22] VITALS: Ht 157.5 cm; Wt 61.4 kg
[~2021-09-22 17:16] MED LIST changes: -ASPI-1450 PO; -DOCU-270 PO; -ESCI10 PO
[2021-09-22] MEDS ORDERED: ACETAMINOPHEN 325 MG TABLET PO ONE (18:45)
[2021-09-22 22:53] VITALS: BP 147/95
== END 2021-09-22 23:15 | disposition home or self-care (01) ==
LOC: EMS 17:18
DX: M54.9 Dorsalgia, unspecified (principal); M25.552 Pain in left hip; F17.210 Nicotine dependence, cigarettes, uncomplicated; F31.9 Bipolar disorder, unspecified; E11.9 Type 2 diabetes mellitus without complications; I11.9 Hypertensive heart disease without heart failure; Y92.89 Other specified places as the place of occurrence of the external cause; W18.39XA Other fall on same level, initial encounter; Y93.89 Activity, other specified; Y99.8 Other external cause status; Z86.73 Personal history of transient ischemic attack (TIA), and cerebral infarction without residual deficits; Z90.710 Acquired absence of both cervix and uterus; Z98.51 Tubal ligation status
CPT/HCPCS: 70450; 72131; 73503; 99285

== ENCOUNTER 2022-01-30 20:50 | Emergency (ER) | payer MEDICARE, OTHER ==
[~2022-01-30] VITALS: Ht 157.5 cm; Wt 56.8 kg
[~2022-01-30 20:50] MED LIST changes: +ALLO-97 PO; -ALLO100T2 PO; -CHOL-35 PO; +CHOL25TA4 PO
[2022-01-30] MEDS ORDERED: TICA90TA PO (21:39)
[2022-01-30] MEDS ORDERED: ESCI10 PO (21:39)
[2022-01-30] MEDS ORDERED: DOCU-350 PO (21:39)
[2022-01-30] MEDS ORDERED: ATOR40TA28 PO (21:39)
[2022-01-30] MEDS ORDERED: LOSA-382 PO (21:39)
[2022-01-30] MEDS ORDERED: LOSA50TA65 PO (21:39)
[2022-01-30] MEDS ORDERED: PANT-31 PO (21:39)
[2022-01-30] MEDS ORDERED: ASPI-2 PO (21:39)
[2022-01-30] MEDS ORDERED: HYDR50TA36 PO (21:39)
[2022-01-30 22:45] LABS: BASOPHILS % (AUTO) 1.3 % (0.0-2.0); EOSINOPHILS % (AUTO) 8.2 % (1.0-6.0); HEMATOCRIT 38.8 % (36-46); HEMOGLOBIN 12.5 g/dL (12.0-16.0); LYMPHOCYTES # (AUTO) 2.2 K/uL (1.0-4.8); LYMPHOCYTES % (AUTO) 41.8 % (22.0-44.0); MEAN CORPUSCULAR HEMOGLOBIN 27.8 pg (26.0-34.0); MEAN CORPUSCULAR HGB CONC 32.4 G/dL (31.0-37.0); MEAN CORPUSCULAR VOLUME 86 fL (80-100); MONOCYTES # (AUTO) 0.4 K/uL (0.1-1.0); NEUTROPHILS # (AUTO) 2.1 K/uL (1.8-7.7); NEUTROPHILS % (AUTO) 40.7 % (40.0-70.0); PLATELET COUNT (AUTO) 265 K/uL (150-450); RED BLOOD CELL COUNT(AUTO) 4.52 MIL/uL (4.00-5.20); RED CELL DISTRIBUTION WIDTH 16.1 % (11.5-14.5)
[2022-01-30 22:56] LABS: CALCIUM, TOTAL 9.9 mg/dL (8.8-10.5); CREATININE 1.37 mg/dL (0.60-1.30); POTASSIUM 4.1 mmol/L (3.5-5.1)
[2022-01-30 23:02] LABS: BILIRUBIN,TOTAL 0.6 mg/dL (0.1-1.0); TOTAL PROTEIN, SERUM 8.2 g/dL (6.4-8.2)
[2022-01-31] MEDS ORDERED: ONDANSETRON HCL 4 MG/2 ML VIAL IVP ONE (01:15)
[2022-01-31] MEDS ORDERED: FAMOTIDINE 10 MG/ML 2 ML VIAL IVP ONE (01:15)
[2022-01-31] MEDS ORDERED: SODIUM CHLORIDE 0.9% 1,000 ML IV ONE (01:15)
[2022-01-31] MEDS ORDERED: MINERAL OIL 133 ML ENEMA PR ONE (01:15)
[2022-01-31 03:26] LABS: APPEARANCE,URINE CLEAR (CLEAR); BILIRUBIN,URINE NEGATIVE (NEGATIVE); GLUCOSE, URINE (UA) NEGATIVE (NEGATIVE); KETONES,URINE NEGATIVE (NEGATIVE); LEUKOCYTE ESTERASE ,URINE NEGATIVE (NEGATIVE); NITRATE,URINE NEGATIVE (NEGATIVE); OCCULT BLOOD,URINE NEGATIVE (NEGATIVE); PROTEIN,URINE NEGATIVE (NEGATIVE); SPECIFIC GRAVITIY, URINE 1.015 (1.003-1.030); UROBILINOGEN,URINE <=1.0 mg/dL (<=1.0)
[2022-01-31 07:16] VITALS: BP 131/64
[2022-01-31] MEDS ORDERED: DOCU-385 PO (08:10)
[2022-01-31] MEDS ORDERED: DOCUSATE SODIUM 100 MG CAPSULE PO ONE (08:15)
== END 2022-01-31 08:47 | disposition home or self-care (01) ==
LOC: EMS 20:57
DX: K59.00 Constipation, unspecified (principal); E86.0 Dehydration; F41.9 Anxiety disorder, unspecified; J44.9 Chronic obstructive pulmonary disease, unspecified; F32.9 Major depressive disorder, single episode, unspecified; E11.9 Type 2 diabetes mellitus without complications; I11.9 Hypertensive heart disease without heart failure; G43.909 Migraine, unspecified, not intractable, without status migrainosus; Z86.73 Personal history of transient ischemic attack (TIA), and cerebral infarction without residual deficits; Z90.710 Acquired absence of both cervix and uterus; Z79.4 Long term (current) use of insulin; Z88.0 Allergy status to penicillin; Z88.6 Allergy status to analgesic agent
CPT/HCPCS: 36415; 74176; 76705; 80053; 81003; 83690; 84484; 85025; 96361; 96374; 96375; 99285; J2405; J3490; J7030

== ENCOUNTER 2022-03-07 10:37 | Inpatient (IN) | payer MEDICARE, OTHER ==
[~2022-03-07] VITALS: Ht 157.5 cm; Wt 57.3 kg
[~2022-03-07 10:37] MED LIST changes: -ALLO-97 PO; +ASPI-2 PO; +ATOR40TA28 PO; +CARB1TAB35 PO; +CHOL200059 PO; -CHOL25TA4 PO; +DOCU-385 PO; +DONE-52 PO; +ESCI10 PO; +GABA-1181 PO; -GABA-1216 PO; +GEMF-77 PO; -GEMF600T90 PO; -HYDR25TA84 PO; -INSU100V SQ; -LORA10TA7 PO; +LOSA50TA65 PO; +MECL-134 PO; -METO25 PO; +MIRA25TA PO; -SIMV-46 PO; +TRAM50TA4 PO
[2022-03-07 12:39] LABS: BASOPHILS % (AUTO) 0.7 % (0.0-2.0); EOSINOPHILS % (AUTO) 4.6 % (1.0-6.0); HEMATOCRIT 38.6 % (36-46); HEMOGLOBIN 12.8 g/dL (12.0-16.0); LYMPHOCYTES # (AUTO) 1.8 K/uL (1.0-4.8); LYMPHOCYTES % (AUTO) 22.7 % (22.0-44.0); MEAN CORPUSCULAR HEMOGLOBIN 28.3 pg (26.0-34.0); MEAN CORPUSCULAR HGB CONC 33.2 G/dL (31.0-37.0); MEAN CORPUSCULAR VOLUME 85 fL (80-100); MONOCYTES # (AUTO) 0.6 K/uL (0.1-1.0); MONOCYTES % (AUTO) 7.2 % (2.0-9.0); NEUTROPHILS # (AUTO) 5.2 K/uL (1.8-7.7); NEUTROPHILS % (AUTO) 64.8 % (40.0-70.0); PLATELET COUNT (AUTO) 303 K/uL (150-450); RED BLOOD CELL COUNT(AUTO) 4.52 MIL/uL (4.00-5.20); RED CELL DISTRIBUTION WIDTH 16.6 % (11.5-14.5)
[2022-03-07 12:42] LABS: CALCIUM, TOTAL 10.1 mg/dL (8.8-10.5); CREATININE 1.28 mg/dL (0.60-1.30)
[2022-03-07 12:47] LABS: COVID AG,FIA SOURCE NASAL SWAB
[2022-03-07 12:48] LABS: BILIRUBIN,TOTAL 0.9 mg/dL (0.1-1.0); TOTAL PROTEIN, SERUM 8.5 g/dL (6.4-8.2)
[2022-03-07] MEDS ORDERED: ASPIRIN 81 MG CHEWABLE TABLET PO ONE (14:30)
[2022-03-07] MEDS ORDERED: INSULIN LISPRO 100 UNITS/ML SQ PRN (15:00)
[2022-03-07] MEDS ORDERED: DEXTROSE 50%-WATER 25 GM/50 ML SYRINGE IVP PRN (15:00)
[2022-03-07] MEDS ORDERED: ONDANSETRON HCL 4 MG/2 ML VIAL IVP PRN (15:00)
[2022-03-07] MEDS: ATORVASTATIN CALCIUM 40 MG TABLET PO SCH (15:42)
[2022-03-07] MEDS: HEPARIN SODIUM,PORCINE 5,000 UNITS/ML VIAL SQ SCH (17:23)
[2022-03-07 18:14] VITALS: BP 140/89
[2022-03-07 20:12] VITALS: BP 141/83
[2022-03-07] MEDS: DOCUSATE SODIUM 100 MG CAPSULE PO SCH (21:04)
[2022-03-07] MEDS: ACETAMINOPHEN 325 MG TABLET PO PRN (21:04)
[2022-03-08 00:01] VITALS: BP 150/85
[2022-03-08] MEDS: HEPARIN SODIUM,PORCINE 5,000 UNITS/ML VIAL SQ SCH ×4 (00:22→23:11)
[2022-03-08 06:38] VITALS: BP 141/79
[2022-03-08 07:40] VITALS: BP 150/82
[2022-03-08 08:16] LABS: GLUCOMETER DEV NAME(LOC) 5S.1B; GLUCOSE,POINT OF CARE 100 MG/DL (70-110)
[2022-03-08 08:16] LABS: GLUCOMETER DEV NAME(LOC) 5N.3; GLUCOSE,POINT OF CARE 107 MG/DL (70-110)
[2022-03-08] MEDS: ATORVASTATIN CALCIUM 40 MG TABLET PO SCH (08:17)
[2022-03-08] MEDS: DOCUSATE SODIUM 100 MG CAPSULE PO SCH ×2 (08:18→21:24)
[2022-03-08] MEDS: FAMOTIDINE 20 MG TABLET PO SCH (08:18)
[2022-03-08 11:03] VITALS: BP 136/78
[2022-03-08 12:41] LABS: GLUCOMETER DEV NAME(LOC) 5S.1B; GLUCOSE,POINT OF CARE 91 MG/DL (70-110)
[2022-03-08 15:35] VITALS: BP 143/75
[2022-03-08 19:16] LABS: GLUCOMETER DEV NAME(LOC) 5S.1B; GLUCOSE,POINT OF CARE 103 MG/DL (70-110)
[2022-03-08 20:22] VITALS: BP 153/89
[2022-03-08 22:26] LABS: GLUCOMETER DEV NAME(LOC) 5N.3; GLUCOSE,POINT OF CARE 108 MG/DL (70-110)
[2022-03-09 00:12] VITALS: BP 151/89
[2022-03-09 04:13] VITALS: BP 156/82
[2022-03-09 08:49] VITALS: BP 157/78
[2022-03-09] MEDS: ACETAMINOPHEN 325 MG TABLET PO PRN (09:44)
[2022-03-09] MEDS: FAMOTIDINE 20 MG TABLET PO SCH (09:44)
[2022-03-09] MEDS: HEPARIN SODIUM,PORCINE 5,000 UNITS/ML VIAL SQ SCH (09:44)
[2022-03-09] MEDS: ATORVASTATIN CALCIUM 40 MG TABLET PO SCH (09:48)
[2022-03-09] MEDS: DOCUSATE SODIUM 100 MG CAPSULE PO SCH (09:48)
[2022-03-09 12:42] VITALS: BP 146/65
[2022-03-09 19:50] LABS: GLUCOMETER DEV NAME(LOC) 5S.1B; GLUCOSE,POINT OF CARE 98 MG/DL (70-110)
== END 2022-03-09 14:45 | disposition home or self-care (01) | DRG 103 ==
LOC: EMS 10:46 → 5N 17:24
PROVIDERS: ADMIT Internal Medicine; ATTEND Internal Medicine
DX: R51.9 Headache, unspecified (principal); I69.354 Hemiplegia and hemiparesis following cerebral infarction affecting left non-dominant side; R53.81 Other malaise; E11.9 Type 2 diabetes mellitus without complications; I10 Essential (primary) hypertension; G47.33 Obstructive sleep apnea (adult) (pediatric); J44.9 Chronic obstructive pulmonary disease, unspecified; J84.10 Pulmonary fibrosis, unspecified; F41.9 Anxiety disorder, unspecified; F32.A Depression, unspecified; Z20.822 Contact with and (suspected) exposure to COVID-19; M19.90 Unspecified osteoarthritis, unspecified site; Z88.1 Allergy status to other antibiotic agents; Z88.5 Allergy status to narcotic agent; Z88.0 Allergy status to penicillin; Z79.899 Other long term (current) drug therapy; Z90.710 Acquired absence of both cervix and uterus
CPT/HCPCS: 70450; 70551; 71045; 80053; 82962; 83880; 84484; 85025; 87040; 93005; 94660; 97116; 97163; 97530; 99285; J1644

== ENCOUNTER 2022-04-05 13:03 | Day surgery (SDC) | payer MEDICARE, MEDICAID ==
[2022-04-03 11:46] LABS: COVID AG,FIA SOURCE NASAL SWAB
[~2022-04-05] VITALS: Ht 157.5 cm; Wt 56.8 kg
[~2022-04-05 13:03] MED LIST changes: -ESCI10 PO; -FLUT16H NASAL; -GABA-1181 PO; -GEMF-77 PO; +LIDOCAINE/PF 2% 5 ML SYRINGE IVP ONE; -LOSA50TA65 PO; -MAGN400T7 PO; -MIRA25TA PO; -MONT-35 PO; +PROPOFOL 1% 20 ML VIAL IVP ONE; +SODIUM CHLORIDE 0.9% 1,000 ML IV ONE; +SODIUM CHLORIDE 0.9% 1,000 ML ONE; -TRAM50TA4 PO
[2022-04-05 14:15] LABS: GLUCOMETER DEV NAME(LOC) SDS.; GLUCOSE,POINT OF CARE 82 MG/DL (70-110)
== END 2022-04-05 16:45 | disposition home or self-care (01) ==
LOC: SURGERY 13:03
PROVIDERS: ATTEND Internal Medicine Gastroenterology
DX: Z12.11 Encounter for screening for malignant neoplasm of colon (principal); K21.9 Gastro-esophageal reflux disease without esophagitis; K64.8 Other hemorrhoids; I10 Essential (primary) hypertension; G47.30 Sleep apnea, unspecified; E11.9 Type 2 diabetes mellitus without complications; K57.30 Diverticulosis of large intestine without perforation or abscess without bleeding; Z82.49 Family history of ischemic heart disease and other diseases of the circulatory system; Z79.899 Other long term (current) drug therapy; Z98.890 Other specified postprocedural states; Z90.710 Acquired absence of both cervix and uterus; Z86.73 Personal history of transient ischemic attack (TIA), and cerebral infarction without residual deficits; Z86.19 Personal history of other infectious and parasitic diseases; Z79.82 Long term (current) use of aspirin; Z88.8 Allergy status to other drugs, medicaments and biological substances; Z88.0 Allergy status to penicillin
CPT/HCPCS: 87426; 82962; 93005; C9803; G0121; J2704; J3490; J7030

== ENCOUNTER → 2025-06-04 | Outpatient (CLI) | payer MEDICARE, OTHER ==
[~2025-06-04] MED LIST changes: +AMLO-257 PO; -AMLO-258 PO; +LIDO-57 TP; -LIDOCAINE/PF 2% 5 ML SYRINGE IVP ONE; -MECL-134 PO; -METF-1211 PO; -MULT-1239 PO; +MULT-1303 PO; -PANT-31 PO; -PROPOFOL 1% 20 ML VIAL IVP ONE; -SODIUM CHLORIDE 0.9% 1,000 ML IV ONE; -SODIUM CHLORIDE 0.9% 1,000 ML ONE
== END | disposition home or self-care (01) ==
LOC: RADMN 09:08
PROVIDERS: ATTEND Internal Medicine Critical Care Medicine
DX: J43.9 Emphysema, unspecified (principal); J84.9 Interstitial pulmonary disease, unspecified; J64 Unspecified pneumoconiosis; R91.8 Other nonspecific abnormal finding of lung field; J98.4 Other disorders of lung; J98.09 Other diseases of bronchus, not elsewhere classified; M32.9 Systemic lupus erythematosus, unspecified; R06.02 Shortness of breath; I25.10 Atherosclerotic heart disease of native coronary artery without angina pectoris; I70.0 Atherosclerosis of aorta; K44.9 Diaphragmatic hernia without obstruction or gangrene
CPT/HCPCS: 71250